=== PATIENT | male | born 1980 | race Caucasian/White ===

== ENCOUNTER 2016-02-21 20:14 | Emergency (ER) | payer OTHER ==
[2016-02-21] MEDS ORDERED: NS 0.9% 1000 ML* 1,000 ML IV ONE (20:21)
--- NOTE | 2016-02-21 20:40 | ED ---
Adam Crawley Karl, scribed for Alexey Gutierrez MD on 02/21/16 at 2017 . Substance Abuse/Use - HPI Summary HPI Summary: Pt is a 35 y/o male that was BIBA to the ED with c/o an OD. Per EMT, pt was found unresponsive by a passerby who called an ambulance. Pt was found w/ agonal respirations and received nasal narcan from EMT. Pt arrived to the ED alert and oriented x4 and reported intravenous use of heroin and cocaine at 19: 00 tonight. Pt received Nasal Narcan 4mg and Lopressor 5mg IV METALIZER. Hx: substance abuse disorder. - History Of Current Complaint Stated Complaint: OVERDOSE Hx Obtained From: Patient, EMS Ingestion History: Type/Name Of Drug - heroin, cocaine Overdose Characteristics: IV Timing Of Abuse: Binge Use Severity Initially: Moderate Severity Currently: Moderate Associated Signs And Symptoms: Other: - labored respirations - Allergies/Home Medications Allergies/Adverse Reactions: Allergies Allergy/AdvReac Type Severity Reaction Status Date / Time No Known Allergies Allergy Verified 05/05/15 10:32 PMH/Surg Hx/FS Hx/Imm Hx Endocrine/Hematology History: Denies: Hx Diabetes, Hx Thyroid Disease Cardiovascular History: Denies: Hx Hypertension, Hx Pacemaker/ICD Respiratory History: Denies: Hx Asthma, Hx Chronic Obstructive Pulmonary Disease (COPD) GI History: Denies: Hx Ulcer Musculoskeletal History: Reports: Hx Tendonitis - Per Pt Sensory History: Denies: Hx Hearing Aid Psychiatric History: Reports: Hx Anxiety, Hx Attention Deficit Hyperactivity Disorder Denies: Hx Panic Disorder - Surgical History Surgery Procedure, Year, and Place: TUBES IN EARS CHILD - Immunization History Date of Tetanus Vaccine: 2010 Date of Influenza Vaccine: Fall 2014 Infectious Disease History: Denies: Hx Clostridium Difficile, Hx Hepatitis, Hx Human Immunodeficiency Virus (HIV), Hx of Known/Suspected MRSA, Hx Shingles, Hx Tuberculosis, Hx Known/ Suspected VRE, Hx Known/Suspected VRSA, History Other Infectious Disease - Family History Known Family History: Negative: Other - malignant hyperthermia - Social History Alcohol Use: Occasionally Hx Substance Use: Yes Substance Use Type: Reports: None Substance Use Comment - Amount & Last Used: No use for >5 years Hx Tobacco Use: Yes Smoking Status (MU): Current Some Day Smoker Type: Cigarettes, Smokeless Tobacco Amount Used/How Often: 4-5 CIG/DAY AND USES SMOKELESS TOBACCO Length of Time of Smoking/Using Tobacco: 20+ YEARS Have You Smoked in the Last Year: Yes Review of Systems Constitutional: Negative Eyes: Negative ENT: Negative Cardiovascular: Other - tachycardia at 160 bpm Respiratory: Other - agonal respirations Gastrointestinal: Negative Genitourinary: Negative Musculoskeletal: Negative Skin: Negative Neurological: Other - "found unresponsive" Psychological: Other - OD on heroin and cocaine All Other Systems Reviewed And Are Negative: Yes Physical Exam Triage Information Reviewed: Yes Vital Signs On Initial Exam: Initial Vitals Temp Pulse Resp BP Pulse Ox 98.1 F 160 16 120/87 98 02/21/16 20:17 02/21/16 20:17 02/21/16 20:17 02/21/16 20:17 02/21/16 20:17 Vital Signs Reviewed: Yes Appearance: Positive: No Pain Distress, Thin Skin: Positive: Warm Head/Face: Positive: Normal Head/Face Inspection Eyes: Positive: KERLINE ENT: Positive: Hearing grossly normal Neck: Positive: Supple Respiratory/Lung Sounds: Positive: Breath Sounds Present Cardiovascular: Positive: Tachycardia. Negative: Murmur Abdomen Description: Positive: Nontender, Soft Bowel Sounds: Positive: Present Musculoskeletal: Positive: Strength/ROM Intact Neurological: Positive: Sensory/Motor Intact, Alert, Oriented to Person Place, Time Psychiatric: Positive: Affect/Mood Appropriate Diagnostics - Vital Signs Vital Signs Temp Pulse Resp BP Pulse Ox 02/21/16 20:17 98.1 F 160 16 120/87 98 - Laboratory Result Diagrams: 02/21/16 20:50 02/21/16 20:50 Lab Statement: Any lab studies that have been ordered have been reviewed, and results considered in the medical decision making process. - EKG 21:21 EKG Interpretation: A-fib with RVR at 160 bpm Re-Evaluation - Re-Evaluation First Eval Change: Improved - pt improved, heart rate normal Course/Dx - Diagnoses Provider Diagnoses: Polydrug abuse, Polysubstance overdose - Critical Care Time Critical Care Time: 30-74 min Discharge - Discharge Plan Condition: Improved Disposition: HOME Patient Education Materials: Polysubstance Abuse (ED), Opioid Overdose (ED) Referrals: Johnie Shaffer MD [Primary Care Provider] - Additional Instructions: Please follow up with your primary care provider. Return to the emergency department for changing or worsening symptoms. The documentation as recorded by the scribe, Medina,Ricardo accurately reflects the service I personally performed and the decisions made by me, Alexey Gutierrez MD.
[2016-02-21 20:58] LABS: Hematocrit 47 % (42-52); Hemoglobin 15.3 g/dl (14.0-18.0); Mean Corpuscular HGB Conc 33 g/dl (31-36); Mean Corpuscular Hemoglobin 32 pg (27-31); Mean Corpuscular Volume 98 fL (80-94); Mean Platelet Volume 8 um3 (7.4-10.4); Red Blood Count 4.77 10^6/ul (4.0-5.4); Red Cell Distribution Width 13 % (10.5-15); White Blood Count 10.4 10^3/ul (3.5-10.8)
[2016-02-21 21:15] LABS: ALT 13 U/L (7-52); AST 17 U/L (13-39); Albumin 4.1 g/dL (3.2-5.2); Alkaline Phosphatase 96 U/L (34-104); Anion Gap 8 mmol/L (2-11); BUN/Creatinine Ratio 13.5 (8-20); Blood Urea Nitrogen 14 mg/dL (6-24); CO2 Carbon Dioxide 23 mmol/L (22-32); Calcium 8.6 mg/dL (8.6-10.3); Chloride 107 mmol/L (101-111); Creatine Kinase 60 U/L (10-223); EGFR African American 103.3 (>60); EGFR Non-African American 80.4 (>60); Globulin 2.7 g/dL (2-4); Glucose 145 mg/dL (70-100); Potassium 3.6 mmol/L (3.5-5.0); Sodium 138 mmol/L (133-145); Total Protein 6.8 g/dL (6.4-8.9)
[2016-02-21] MEDS ORDERED: Metoprolol Tartrate IV* 1 MG/ML 5 ML VIAL IV ONE ×2 (21:24→21:56)
[2016-02-21] MEDS ORDERED: Metoprolol Tartrate IV* 1 MG/ML 5 ML VIAL ONE (21:26)
[2016-02-21] MEDS: NS 0.9% 1000 ML* 1,000 ML IV ONE ×2 (21:35→22:33)
[2016-02-21 21:43] LABS: Acetaminophen < 15 mcg/mL; Alcohol 76 mg/dL (<10); Salicylate < 2.50 mg/dL (<30)
[2016-02-21 21:57] LABS: Troponin I 0.01 ng/mL (<0.04)
[2016-02-21] MEDS ORDERED: Diltiazem IV* 5 MG/ML 5 ML VIAL (for loading dose/IV Push) (25 MG) IV SLOW PU ONE (22:27)
[2016-02-22 01:23] VITALS: BP 111/77
== END 2016-02-22 01:22 | disposition home or self-care (01) ==
LOC: ED 20:14
DX: T40.1X1A Poisoning by heroin, accidental (unintentional), initial encounter (principal); T40.5X1A Poisoning by cocaine, accidental (unintentional), initial encounter; F14.10 Cocaine abuse, uncomplicated; Y92.9 Unspecified place or not applicable
CPT/HCPCS: 36415; 80053; 80320; 80329; 82550; 83605; 84484; 85025; 93005; 96361; 96374; 99283; G0480; J3490

== ENCOUNTER 2016-03-22 22:25 | Emergency (ER) | payer OTHER ==
[2016-03-22 22:40] VITALS: BP 149/88
--- NOTE | 2016-03-22 23:15 | ED ---
Lower Extremity - HPI Summary HPI Summary: 35 m presents with right ankle pain and swelling for 3 days. He states that pain started in his nunes and has since spread into his ankle. He admits to warmth and redness of area. He denies any trauma. He denies any IV drug use. He denies any history of gout or STDs. He has a history of lyme disease. He denies any abrasion or scratch to area. He says that standing for long periods of time makes it worst. - History of Current Complaint Chief Complaint: EDExtremityLower Stated Complaint: RIGHT ANKLE PAIN/SWELLING Time Seen by Provider: 03/22/16 22:59 Pain Intensity: 7 - Allergies/Home Medications Allergies/Adverse Reactions: Allergies Allergy/AdvReac Type Severity Reaction Status Date / Time No Known Allergies Allergy Verified 03/22/16 22:36 PMH/Surg Hx/FS Hx/Imm Hx Endocrine/Hematology History: Denies: Hx Diabetes, Hx Thyroid Disease Cardiovascular History: Denies: Hx Hypertension, Hx Pacemaker/ICD Respiratory History: Denies: Hx Asthma, Hx Chronic Obstructive Pulmonary Disease (COPD) GI History: Denies: Hx Ulcer Musculoskeletal History: Reports: Hx Tendonitis - Per Pt Sensory History: Denies: Hx Hearing Aid Psychiatric History: Reports: Hx Anxiety, Hx Attention Deficit Hyperactivity Disorder Denies: Hx Panic Disorder - Surgical History Surgery Procedure, Year, and Place: TUBES IN EARS CHILD - Immunization History Date of Tetanus Vaccine: 2010 Date of Influenza Vaccine: Fall 2014 Infectious Disease History: No Infectious Disease History: Denies: Hx Clostridium Difficile, Hx Hepatitis, Hx Human Immunodeficiency Virus (HIV), Hx of Known/Suspected MRSA, Hx Shingles, Hx Tuberculosis, Hx Known/ Suspected VRE, Hx Known/Suspected VRSA, History Other Infectious Disease, Traveled Outside the [place] in Last 30 Days - Family History Known Family History: Negative: Other - malignant hyperthermia - Social History Alcohol Use: Occasionally Hx Substance Use: Yes Substance Use Type: Reports: None Substance Use Comment - Amount & Last Used: No use for >5 years Hx Tobacco Use: Yes Smoking Status (MU): Current Some Day Smoker Type: Cigarettes, Smokeless Tobacco Amount Used/How Often: 4-5 CIG/DAY AND USES SMOKELESS TOBACCO Length of Time of Smoking/Using Tobacco: 20+ YEARS Have You Smoked in the Last Year: Yes Review of Systems Negative: Fever Negative: Chest Pain Negative: Shortness Of Breath Positive: Myalgia - right ankle pain and swelling All Other Systems Reviewed And Are Negative: Yes Physical Exam Triage Information Reviewed: Yes Vital Signs On Initial Exam: Initial Vitals Temp Pulse Resp BP Pulse Ox 98.5 F 109 18 149/88 100 03/22/16 22:36 03/22/16 22:36 03/22/16 22:36 03/22/16 22:36 03/22/16 22:36 Vital Signs Reviewed: Yes Appearance: Positive: Well-Appearing Skin: Positive: Other - erythema and edema present of right nunes and ankle Head/Face: Positive: Normal Head/Face Inspection Eyes: Positive: Normal, Conjunctiva Clear Respiratory/Lung Sounds: Positive: Clear to Auscultation, Breath Sounds Present Cardiovascular: Positive: Normal, RRR Musculoskeletal: Positive: Strength/ROM Intact - right ankle with pain, no area of flatulence noted Diagnostics - Vital Signs Vital Signs Temp Pulse Resp BP Pulse Ox 03/22/16 22:36 98.5 F 109 18 149/88 100 - Laboratory Result Diagrams: 03/22/16 23:41 03/22/16 23:41 Lab Statement: Any lab studies that have been ordered have been reviewed, and results considered in the medical decision making process. - Radiology ankle Xray Interpretation: No Acute Changes - do not see fracture or evidence of a large amount of edema present Radiology Interpretation Completed By: ED Physician Lower Extremity Course/Dx - Course Course Of Treatment: 35 M presents with swelling and redness that started on nunes and moved to ankle, swelling has gotten worst with standing, has full ROM of ankle with pain, no calf tenderness, erythema and warmth to ankle and nunes, labs ESR normal unlike when was admitted for septic arthritis, WBC normal, do not suspect gonorrhea or lyme disease as cause as ESR normal, will treat as cellulitis and have follow up with primary, patient agrees with plan - Diagnoses Differential Diagnosis/HQI/PQRI: Positive: Cellulitis, DVT, Gout, Septic Arthritis, Other - gonorrhea, lyme arthritis Provider Diagnoses: Cellulitis of right ankle Discharge - Discharge Plan Condition: Good Disposition: HOME Prescriptions: Cephalexin CAP* [Keflex CAP*] 500 mg PO QID #39 cap Patient Education Materials: Cellulitis (ED) Referrals: Johnie Shaffer MD [Primary Care Provider] - Additional Instructions: Take Keflex 4 times a day for 10 days Take Tylenol or ibuprofen for pain every 6 hours Keep elevated and apply ice for swelling Follow up with primary within 3 days Return to ED if develop fever, area of redness spreads, numbness or any new or worsening symptoms
[2016-03-22] MEDS ORDERED: oxyCODONE/Acetamin 5/325 MG* TAB PO ONE (23:48)
[2016-03-22 23:55] LABS: Hematocrit 43 % (42-52); Hemoglobin 14.3 g/dl (14.0-18.0); Mean Corpuscular HGB Conc 34 g/dl (31-36); Mean Corpuscular Hemoglobin 32 pg (27-31); Mean Corpuscular Volume 95 fL (80-94); Mean Platelet Volume 9 um3 (7.4-10.4); Red Blood Count 4.49 10^6/ul (4.0-5.4); Red Cell Distribution Width 13 % (10.5-15); White Blood Count 8.1 10^3/ul (3.5-10.8)
[2016-03-23 00:04] LABS: Albumin 4.1 g/dL (3.2-5.2); BUN/Creatinine Ratio 18.3 (8-20); Calcium 9.1 mg/dL (8.6-10.3); EGFR African American 117.6 (>60); EGFR Non-African American 91.4 (>60); Total Bilirubin 0.3 mg/dL (0.2-1.0); Total Protein 7.1 g/dL (6.4-8.9)
[2016-03-23 00:40] LABS: Potassium 4.2 mmol/L (3.5-5.0)
[2016-03-23 00:57] LABS: Erythrocyte Sed Rate 14 mm/Hr (0-14)
[2016-03-23] MEDS ORDERED: Cephalexin CAP* 500 MG PO ONE (01:25)
--- NOTE | 2016-03-23 09:47 | RAD ---
INDICATION: Pain and swelling in the right anterior lower leg. COMPARISON: None. TECHNIQUE: 3 views of the right ankle were obtained. FINDINGS: Mild swelling is observed at the level of the ankle. The bones are normal alignment. Joint spaces appear maintained. No fracture is seen. IMPRESSION: MILD SOFT TISSUE SWELLING OVERLYING THE ANKLE WITHOUT UNDERLYING BONY ABNORMALITY. If the patient's symptoms persist, follow-up imaging is recommended.
== END 2016-03-23 01:40 | disposition home or self-care (01) ==
LOC: ED 22:25
DX: L03.115 Cellulitis of right lower limb (principal); M25.571 Pain in right ankle and joints of right foot; Z72.0 Tobacco use
CPT/HCPCS: 36415; 80053; 85025; 85652; 86141; 99282; A9270-GY

== ENCOUNTER 2016-06-24 02:59 | Emergency (ER) | payer OTHER ==
[2016-06-24 03:21] VITALS: BP 167/87
[2016-06-24 04:03] LABS: Hematocrit 41 % (42-52); Hemoglobin 13.5 g/dl (14.0-18.0); Mean Corpuscular HGB Conc 33 g/dl (31-36); Mean Corpuscular Hemoglobin 32 pg (27-31); Mean Corpuscular Volume 95 fL (80-94); Mean Platelet Volume 9 um3 (7.4-10.4); Red Blood Count 4.27 10^6/ul (4.0-5.4); Red Cell Distribution Width 13 % (10.5-15); White Blood Count 14.8 10^3/ul (3.5-10.8)
[2016-06-24 04:12] LABS: BUN/Creatinine Ratio 19.4 (8-20); Calcium 9.2 mg/dL (8.6-10.3); EGFR African American 98.9 (>60); EGFR Non-African American 76.9 (>60); Potassium 3.7 mmol/L (3.5-5.0)
[2016-06-24] MEDS ORDERED: DOXYcycline CAP(*) 100 MG PO ONE (05:19)
--- NOTE | 2016-07-07 05:24 | ED ---
Martin Crawley Salem, scribed for Alexey Gutierrez MD on 06/24/16 at 0416 . Skin Complaint - HPI Summary HPI Summary: Patient is a 35 y/o male who presents to the ED with pain and edema of the left side of his chin since last night. He reports no other symptoms. Pt denies any known drug allergies. - History of Current Complaint Chief Complaint: EDRashSkinAbscess Time Seen by Provider: 06/24/16 03:17 Stated Complaint: SWOLLEN LEFT BOTTOM JAW Hx Obtained From: Patient Onset/Duration: Started Days Ago, Atraumatic, Still Present Timing: Constant Onset Severity: Moderate Current Severity: Moderate Pain Intensity: 5 Pain Scale Used: 0-10 Numeric Skin Location: Face - Left side of chin. Character: Swelling, Pain Aggravating Symptom(s): Nothing Alleviating Symptom(s): Nothing Associated Signs & Symptoms: Negative - Additional Pertinent History Primary Care Physician: MILLA - Allergy/Home Medications Allergies/Adverse Reactions: Allergies Allergy/AdvReac Type Severity Reaction Status Date / Time No Known Allergies Allergy Verified 06/24/16 21:20 PMH/Surg Hx/FS Hx/Imm Hx Endocrine/Hematology History: Denies: Hx Diabetes, Hx Thyroid Disease Cardiovascular History: Denies: Hx Hypertension, Hx Pacemaker/ICD Respiratory History: Denies: Hx Asthma, Hx Chronic Obstructive Pulmonary Disease (COPD) GI History: Denies: Hx Ulcer Musculoskeletal History: Reports: Hx Tendonitis - Per Pt Sensory History: Denies: Hx Hearing Aid Psychiatric History: Reports: Hx Anxiety, Hx Attention Deficit Hyperactivity Disorder Denies: Hx Panic Disorder - Surgical History Surgery Procedure, Year, and Place: TUBES IN EARS CHILD - Immunization History Date of Tetanus Vaccine: 2010 Date of Influenza Vaccine: Fall 2014 Infectious Disease History: No Infectious Disease History: Denies: Hx Clostridium Difficile, Hx Hepatitis, Hx Human Immunodeficiency Virus (HIV), Hx of Known/Suspected MRSA, Hx Shingles, Hx Tuberculosis, Hx Known/ Suspected VRE, Hx Known/Suspected VRSA, History Other Infectious Disease, Traveled Outside the [place] in Last 30 Days - Family History Known Family History: Negative: Other - malignant hyperthermia - Social History Alcohol Use: Occasionally Hx Substance Use: Yes Substance Use Type: Reports: None Substance Use Comment - Amount & Last Used: No use for >5 years Hx Tobacco Use: Yes Smoking Status (MU): Current Some Day Smoker Type: Cigarettes, Smokeless Tobacco Amount Used/How Often: 4-5 CIG/DAY AND USES SMOKELESS TOBACCO Length of Time of Smoking/Using Tobacco: 20+ YEARS Have You Smoked in the Last Year: Yes Review of Systems Negative: Fever Positive: Other - Edema and pain of left side of chin. All Other Systems Reviewed And Are Negative: Yes Physical Exam Triage Information Reviewed: Yes Vital Signs On Initial Exam: Initial Vitals Temp Pulse Resp BP Pulse Ox 98 F 103 18 161/87 100 06/24/16 03:03 06/24/16 03:03 06/24/16 03:03 06/24/16 03:03 06/24/16 03:03 Vital Signs Reviewed: Yes Appearance: Positive: Well-Appearing, No Pain Distress Skin: Positive: Other - area of folliculitis to chin Eyes: Positive: KERLINE ENT: Positive: Hearing grossly normal Respiratory/Lung Sounds: Positive: Breath Sounds Present Neurological: Positive: Alert, Oriented to Person Place, Time - Saige Coma Scale Coma Scale Total: 15 Diagnostics - Vital Signs Vital Signs Temp Pulse Resp BP Pulse Ox 06/24/16 03:16 98.0 F 103 18 167/87 100 06/24/16 03:03 98 F 103 18 161/87 100 - Laboratory Lab Results: Lab Results 06/24/16 Range/Units 03:50 WBC 14.8 H (3.5-10.8) 10^3/ul RBC 4.27 (4.0-5.4) 10^6/ul Hgb 13.5 L (14.0-18.0) g/dl Hct 41 L (42-52) % MCV 95 H (80-94) fL MCH 32 H (27-31) pg MCHC 33 (31-36) g/dl RDW 13 (10.5-15) % Plt Count 250 (150-450) 10^3/ul MPV 9 (7.4-10.4) um3 Neut % (Auto) 79.1 (38-83) % Lymph % (Auto) 12.4 L (25-47) % [place] % (Auto) 7.0 (1-9) % Eos % (Auto) 1.1 (0-6) % Baso % (Auto) 0.4 (0-2) % Absolute Neuts (auto) 11.7 H (1.5-7.7) 10^3/ul Absolute Lymphs (auto) 1.8 (1.0-4.8) 10^3/ul Absolute Monos (auto) 1.0 H (0-0.8) 10^3/ul Absolute Eos (auto) 0.2 (0-0.6) 10^3/ul Absolute Basos (auto) 0.1 (0-0.2) 10^3/ul Absolute Nucleated RBC 0 10^3/ul Nucleated RBC % 0 Result Diagrams: 06/24/16 03:50 06/24/16 03:50 Lab Statement: Any lab studies that have been ordered have been reviewed, and results considered in the medical decision making process. Course/Dx - Diagnoses Provider Diagnoses: Folliculitis Discharge - Discharge Plan Condition: Stable Disposition: HOME Patient Education Materials: Folliculitis (ED) Referrals: Johnie Shaffer MD [Primary Care Provider] - Additional Instructions: Follow up with PCP. The documentation as recorded by the Martin faria Salem accurately reflects the service I personally performed and the decisions made by Matt diaz David, MD.
== END 2016-06-24 05:25 | disposition home or self-care (01) ==
LOC: ED 02:59
DX: L73.9 Follicular disorder, unspecified (principal)
CPT/HCPCS: 36415; 80048; 85025; 99282; A9270-GY

== ENCOUNTER 2016-06-24 20:58 | Emergency (ER) | payer OTHER ==
[2016-06-24 21:20] VITALS: BP 128/77
--- NOTE | 2016-06-24 21:30 | UC ---
Skin Complaint HPI - HPI Summary HPI Summary: seen in ED last night got first dose of antibiotic for folliculitis left side of face---the ED did not send rx to pharmacy he called several times and they said they were to busy---here tonight for a dose of antibiotic and an RX - History of Current Complaint Chief Complaint: UCSkin Time Seen by Provider: 06/24/16 21:15 Stated Complaint: FACIAL SWELLING Hx Obtained From: Patient Onset/Duration: Sudden Onset, Lasting Days - 1, Still Present Timing: Constant Onset Severity: Moderate Current Severity: Moderate Pain Intensity: 5 Pain Scale Used: 0-10 Numeric Location: Discrete - left side of chin/cheek Character: Redness, Raised, Painful Aggravating: Touch Alleviating: Nothing Associated Signs & Symptoms: Positive: Negative - Allergy/Home Medications Allergies/Adverse Reactions: Allergies Allergy/AdvReac Type Severity Reaction Status Date / Time No Known Allergies Allergy Verified 06/24/16 21:20 Review of Systems Constitutional: Negative Skin: Other - Folliculitis/cyst developing left side of chin / cheek Eyes: Negative ENT: Negative Respiratory: Negative Cardiovascular: Negative Gastrointestinal: Negative Genitourinary: Negative Motor: Negative Neurovascular: Negative Musculoskeletal: Negative Neurological: Negative Psychological: Negative All Other Systems Reviewed And Are Negative: Yes PMH/Surg Hx/FS Hx/Imm Hx Previously Healthy: No Endocrine History Of: Denies: Diabetes, Thyroid Disease Cardiovascular History Of: Denies: Cardiac Disorders, Hypertension, Pacemaker/ICD Respiratory History Of: Denies: COPD, Asthma GI/ History Of: Denies: Ulcer Psychological History Of: Reports: Anxiety - Surgical History Surgical History: Yes Surgery Procedure, Year, and Place: TUBES IN EARS CHILD - Family History Known Family History: Negative: Other - malignant hyperthermia - Social History Occupation: Employed Full-time Lives: With Family Alcohol Use: Weekly Substance Use Type: Cocaine, Heroin, Synthetic Drugs Substance Use Comment - Amount & Last Used: Last Used Heroin a couple days ago Smoking Status (MU): Current Some Day Smoker Type: Cigarettes, Smokeless Tobacco Amount Used/How Often: 4-5 CIG/DAY AND USES SMOKELESS TOBACCO Length of Time of Smoking/Using Tobacco: 20+ YEARS Have You Smoked in the Last Year: Yes - Immunization History Most Recent Influenza Vaccination: 2014 Most Recent Tetanus Shot: 2011 Most Recent Pneumonia Vaccination: never Physical Exam Triage Information Reviewed: Yes Appearance: Ill-Appearing, Pain Distress, Thin Vital Signs: Initial Vital Signs Temp 99.3 F 06/24/16 21:17 Pulse 102 06/24/16 21:17 Resp 16 06/24/16 21:17 BP 128/77 06/24/16 21:17 Pulse Ox 99 06/24/16 21:17 Vital Signs Reviewed: Yes Eye Exam: Normal Eyes: Positive: Conjunctiva Clear ENT Exam: Normal ENT: Positive: Normal ENT inspection, Hearing grossly normal. Negative: Nasal congestion, Nasal drainage, Trismus, Muffled/hoarse voice Dental Exam: Normal Neck exam: Normal Neck: Positive: Supple, Nontender, No Lymphadenopathy Respiratory Exam: Normal Respiratory: Positive: Chest non-tender, Lungs clear, Normal breath sounds, No respiratory distress, No accessory muscle use Cardiovascular Exam: Normal Cardiovascular: Positive: RRR, No Murmur, Pulses Normal, Brisk Capillary Refill Musculoskeletal Exam: Normal Musculoskeletal: Positive: Strength Intact, ROM Intact, Edema @ - face as described Neurological Exam: Normal Psychological Exam: Normal Skin Exam: Other Skin: Positive: Other - folliculitis developing cyst left side of face near chin --firm with no center fluctulance Course/Dx - Course Course Of Treatment: next dose of doxy given, continue doxy frequent hot compresses follow with pcp re-check with pcp - Differential Diagnoses - Skin Complaint Differential Diagnoses: Abscess, Cellulitis, Impetigo - Diagnoses Provider Diagnoses: folliculitis left cheek/chin Discharge - Discharge Plan Condition: Stable Disposition: HOME Prescriptions: DOXYcycline CAP(*) [DOXYcycline 100MG CAP(*)] 100 mg PO BID #18 cap Patient Education Materials: Folliculitis (ED), Heat Pack Application (ED), Cyst (ED) Referrals: Johnie Shaffer MD [Primary Care Provider] - 1 Week
[2016-06-24] MEDS ORDERED: DOXYcycline CAP(*) 100 MG PO ONE (21:35)
== END 2016-06-24 21:45 | disposition home or self-care (01) ==
LOC: UCEAST 20:58
DX: L73.9 Follicular disorder, unspecified (principal); F41.9 Anxiety disorder, unspecified; Z72.0 Tobacco use
CPT/HCPCS: 99212; A9270-GY; G0463

== ENCOUNTER 2017-04-24 22:29 | Emergency (ER) | payer SELFPAY ==
[2017-04-25 02:43] VITALS: BP 106/61
--- NOTE | 2017-04-25 15:22 | ED ---
Isak Crawley Sixian, scribed for Kash Arzate MD on 04/24/17 at 2336 . Substance Abuse/Use - HPI Summary HPI Summary: This patient is a 36 year old M BIBA to ED with a opiate overdose today. The pt had a relapse today and overdosed on heroin. Pt was found by bystanders with decrease responsiveness. On EMS arrival, pt was arousable without Narcan. Pt now awake and alert. Pt following commands. Pt denies SI or other use of drugs of abuse. - History Of Current Complaint Chief Complaint: EDOverdose Stated Complaint: OVERDOSE Time Seen by Provider: 04/24/17 23:09 Hx Obtained From: Patient Ingestion History: Type/Name Of Drug - Heroin Aggravating Factor(s): Nothing Alleviating Factor(s): Nothing Associated Signs And Symptoms: Other: - Patient reports drowsiness. - Allergies/Home Medications Allergies/Adverse Reactions: Allergies Allergy/AdvReac Type Severity Reaction Status Date / Time No Known Allergies Allergy Verified 06/24/16 21:20 PMH/Surg Hx/FS Hx/Imm Hx Endocrine/Hematology History: Denies: Hx Diabetes, Hx Thyroid Disease Cardiovascular History: Denies: Hx Hypertension, Hx Pacemaker/ICD Respiratory History: Denies: Hx Asthma, Hx Chronic Obstructive Pulmonary Disease (COPD) GI History: Denies: Hx Ulcer Musculoskeletal History: Reports: Hx Tendonitis - Per Pt Sensory History: Denies: Hx Hearing Aid Psychiatric History: Reports: Hx Anxiety, Hx Attention Deficit Hyperactivity Disorder Denies: Hx Panic Disorder - Surgical History Surgery Procedure, Year, and Place: TUBES IN EARS CHILD - Immunization History Date of Tetanus Vaccine: 2010 Date of Influenza Vaccine: Fall 2014 Infectious Disease History: No Infectious Disease History: Denies: Hx Clostridium Difficile, Hx Hepatitis, Hx Human Immunodeficiency Virus (HIV), Hx of Known/Suspected MRSA, Hx Shingles, Hx Tuberculosis, Hx Known/ Suspected VRE, Hx Known/Suspected VRSA, History Other Infectious Disease, Traveled Outside the [place] in Last 30 Days - Family History Known Family History: Negative: Other - malignant hyperthermia - Social History Alcohol Use: Weekly Hx Substance Use: Yes Substance Use Type: Reports: Cocaine, Heroin, Synthetic Drugs Substance Use Comment - Amount & Last Used: Last Used Heroin a couple days ago Hx Tobacco Use: Yes Smoking Status (MU): Current Some Day Smoker Type: Cigarettes, Smokeless Tobacco Amount Used/How Often: 4-5 CIG/DAY AND USES SMOKELESS TOBACCO Length of Time of Smoking/Using Tobacco: 20+ YEARS Have You Smoked in the Last Year: Yes Review of Systems Negative: Fever Neurological: Other - Patient reports drowsiness. All Other Systems Reviewed And Are Negative: Yes Physical Exam - Summary Physical Exam Summary: Appearance: Well-appearing, no distress, drowsy Skin: Warm, color reflects adequate perfusion Head: Normal Head/Face inspection Eyes: Conjunctiva clear ENT: Normal inspection Neck: Supple, Respiratory: Lungs clear, Normal breath sounds, no respiratory distress Cardio: RRR, No murmur, pulses normal, brisk capillary refill Abdomen: soft, nontender, no guarding, no rebound Bowel sounds: present Musculoskeletal: Strength Intact/ ROM intact. No calf tenderness. No edema. Neuro: Alert, muscle tone normal, facial symmetry, speech normal, sensory/motor intact Psychological: Normal Triage Information Reviewed: Yes Vital Signs On Initial Exam: Initial Vitals Temp Pulse Resp BP Pulse Ox 99.8 F 119 10 146/82 94 04/24/17 22:32 04/24/17 22:32 04/24/17 22:32 04/24/17 22:32 04/24/17 22:32 Vital Signs Reviewed: Yes Diagnostics - Vital Signs Vital Signs Temp Pulse Resp BP Pulse Ox 04/24/17 23:00 100 9 121/61 97 04/24/17 22:36 122 91 04/24/17 22:34 146/82 04/24/17 22:32 99.8 F 119 10 146/82 94 - Laboratory Lab Statement: Any lab studies that have been ordered have been reviewed, and results considered in the medical decision making process. - EKG 2239 Cardiac Rate: NL EKG Rhythm: Sinus Bradycardia - 110 BPM EKG Interpretation: Normal intervals, axis. No ST/T wave changes. Re-Evaluation - Re-Evaluation First Eval Change: Improved - Pt resting comfortably in bed. pt with no hypoxia or bradypnea. Will continue to monitor. Second Eval Re-Evaluation Time: 01:30 Change: Improved - pt continues to be asymptomatic without respiratory distress or hypoxia. Third Eval Re-Evaluation Time: 02:07 Change: Improved - Pt monitored in the ED without respiratory insufficiency x 4 hours. Course/Dx - Diagnoses Differential Diagnosis/HQI/PQRI: Positive: Alcohol Abuse, Anxiety, Drug Abuse, Drug Withdrawal Provider Diagnoses: Heroin abuse Discharge - Discharge Plan Condition: Improved Disposition: HOME Patient Education Materials: Opioid Overdose (ED) Referrals: Johnie Shaffer MD [Primary Care Provider] - Additional Instructions: RETURN TO THE EMERGENCY DEPARTMENT FOR CHANGING OR WORSENING SYMPTOMS. The documentation as recorded by the Isak faria Sixian accurately reflects the service I personally performed and the decisions made by , Kash Arzate MD.
== END 2017-04-25 02:51 | disposition home or self-care (01) ==
LOC: ED 22:29
DX: F11.10 Opioid abuse, uncomplicated (principal); F41.9 Anxiety disorder, unspecified; F90.9 Attention-deficit hyperactivity disorder, unspecified type; F17.210 Nicotine dependence, cigarettes, uncomplicated
CPT/HCPCS: 93005; 99283

== ENCOUNTER 2017-04-25 03:03 | Emergency (ER) | payer SELFPAY ==
[2017-04-25] MEDS ORDERED: Naloxone* 0.4 MG/ML 1 ML VIAL ONE (03:12)
[2017-04-25] MEDS ORDERED: Naloxone* 0.4 MG/ML 1 ML VIAL IV PUSH ONE ×2 (03:44→05:32)
[2017-04-25 08:08] VITALS: BP 116/68
--- NOTE | 2017-04-25 14:19 | ED ---
Isak Crawley Sixian, scribed for Kash Arzate MD on 04/25/17 at 0355 . Substance Abuse/Use - HPI Summary HPI Summary: This patient is a 36 year old M BIBA to ED with a chief complaint of substance overdose since 2199 today. The pt relapsed earlier today and overdosed on heroin. Pt was discharged after several hours of monitoring, and was found with decreased responsiveness in the the ED lobby. Pt given IV Narcan with improvement in symptoms. Pt states after discharge he went into the bathroom and injected heroin while waiting on a cab. Pt - History Of Current Complaint Chief Complaint: EDOverdose Stated Complaint: OVERDOSE Time Seen by Provider: 04/25/17 03:44 Hx Obtained From: Patient Aggravating Factor(s): Nothing Alleviating Factor(s): Nothing Associated Signs And Symptoms: Other: - . Patient reports drowsiness and is pale. - Allergies/Home Medications Allergies/Adverse Reactions: Allergies Allergy/AdvReac Type Severity Reaction Status Date / Time No Known Allergies Allergy Verified 06/24/16 21:20 PMH/Surg Hx/FS Hx/Imm Hx Endocrine/Hematology History: Denies: Hx Diabetes, Hx Thyroid Disease Cardiovascular History: Denies: Hx Hypertension, Hx Pacemaker/ICD Respiratory History: Denies: Hx Asthma, Hx Chronic Obstructive Pulmonary Disease (COPD) GI History: Denies: Hx Ulcer Musculoskeletal History: Reports: Hx Tendonitis - Per Pt Sensory History: Denies: Hx Hearing Aid Psychiatric History: Reports: Hx Anxiety, Hx Attention Deficit Hyperactivity Disorder Denies: Hx Panic Disorder - Surgical History Surgery Procedure, Year, and Place: TUBES IN EARS CHILD - Immunization History Date of Tetanus Vaccine: 2010 Date of Influenza Vaccine: Fall 2014 Infectious Disease History: Denies: Hx Clostridium Difficile, Hx Hepatitis, Hx Human Immunodeficiency Virus (HIV), Hx of Known/Suspected MRSA, Hx Shingles, Hx Tuberculosis, Hx Known/ Suspected VRE, Hx Known/Suspected VRSA, History Other Infectious Disease, Traveled Outside the [place] in Last 30 Days - Family History Known Family History: Negative: Other - malignant hyperthermia - Social History Alcohol Use: Weekly Hx Substance Use: Yes Substance Use Type: Reports: Cocaine, Heroin, Synthetic Drugs Substance Use Comment - Amount & Last Used: heroin today Hx Tobacco Use: Yes Smoking Status (MU): Current Some Day Smoker Type: Cigarettes, Smokeless Tobacco Amount Used/How Often: 4-5 CIG/DAY AND USES SMOKELESS TOBACCO Length of Time of Smoking/Using Tobacco: 20+ YEARS Have You Smoked in the Last Year: Yes Review of Systems Skin: Other - pale skin Neurological: Other - drowsiness All Other Systems Reviewed And Are Negative: Yes Physical Exam - Summary Physical Exam Summary: Appearance: drowsy, Skin: pale, adequate perfusion Head: Normal Head/Face inspection Eyes: Conjunctiva clear ENT: Normal inspection Neck: Supple, no nodes, no JVD. Respiratory: Lungs clear, Normal breath sounds, no respiratory distress Cardio: RRR, No murmur, pulses normal, brisk capillary refill Abdomen: soft, no distension Bowel sounds: present Musculoskeletal: ROM grossly intact Neuro: Alert, following some commands Psychological: unable to examine Triage Information Reviewed: Yes Vital Signs On Initial Exam: Initial Vitals Pulse Resp BP Pulse Ox 99 10 130/83 100 04/25/17 03:29 18 03:29 18 03:29 18 03:29 Vital Signs Reviewed: Yes Diagnostics - Vital Signs Vital Signs Pulse Resp BP Pulse Ox 04/25/17 03:29 99 10 130/83 100 - Laboratory Lab Statement: Any lab studies that have been ordered have been reviewed, and results considered in the medical decision making process. - EKG 0314 Cardiac Rate: NL EKG Rhythm: Sinus Tachycardia - 116 BPM EKG Interpretation: Normal intervals, axis. No ST, T wave changes. Re-Evaluation - Re-Evaluation First Eval Re-Evaluation Time: 06:58 Change: Improved - pt given 2 doses of IV narcan with improvement in symptoms. pt with no hypoxia or bradypnea. Pt hemodynamically stable with no respiratory distress. Course/Dx - Course Course Of Treatment: Pt again monitored in the ED for greater than 4 hours. Pt with no respiratory supression. Pt again advised to stop opiate use and continue rehab. - Diagnoses Differential Diagnosis/HQI/PQRI: Positive: Alcohol Withdrawal, Anxiety, Drug Abuse, Other - Opiate overdose Provider Diagnoses: Opiate overdose Discharge - Discharge Plan Condition: Improved Disposition: HOME Patient Education Materials: Opioid Overdose (ED) Referrals: Johnie Shaffer MD [Primary Care Provider] - 2 Days Additional Instructions: RETURN TO THE EMERGENCY DEPARTMENT FOR CHANGING OR WORSENING SYMPTOMS. The documentation as recorded by the Isak faria Sixian accurately reflects the service I personally performed and the decisions made by me, Kash Arzate MD.
== END 2017-04-25 08:07 | disposition home or self-care (01) ==
LOC: ED 03:03
DX: T40.1X1A Poisoning by heroin, accidental (unintentional), initial encounter (principal); F17.210 Nicotine dependence, cigarettes, uncomplicated; F17.290 Nicotine dependence, other tobacco product, uncomplicated
CPT/HCPCS: 93005; 96374; 96376; 99284; J2310

== ENCOUNTER 2018-10-17 16:18 | Inpatient (IN) | payer OTHER ==
[2018-10-17] MEDS ORDERED: Octreotide Acetate* 50 MCG in NS 0.9% 50 ML* 50 ML IV ONE (16:22)
[2018-10-17] MEDS ORDERED: Pantoprazole IV* 40 MG IV ONE (16:22)
[2018-10-17] MEDS ORDERED: cefTRIAXone(*) 1 GM in NS 0.9% 50 ML* 50 ML IVPB ONE (16:22)
[2018-10-17] MEDS ORDERED: Pantoprazole* 80 mg IN NS 80 MG/250 ML BAG IV ONE (16:22)
[2018-10-17] MEDS ORDERED: NS 0.9% 1000 ML** 1,000 ML IV ONE ×2 (16:25→16:26)
[2018-10-17] MEDS ORDERED: Ondansetron INJ* 2 MG/ML VIAL IV ONE (16:32)
[2018-10-17] MEDS ORDERED: Ondansetron INJ* 2 MG/ML VIAL ONE (16:35)
--- NOTE | 2018-10-17 16:36 | ED ---
GI/ HPI - HPI Summary HPI Summary: This patient is a 37 year old M ESTEBAN via EMS to ED with a chief complaint of vomiting since two days ago. Patient has been vomiting for the past two days but first starting vomiting blood today. Yesterday, patient felt nauseous and had a LEE. Per EMS, patient had hematemesis of bright red blood with significant clotting in both the bathroom and living room this afternoon. He also had diarrhea x1 that was dark and tarry just prior to vomiting. Symptoms aggravated by nothing. Symptoms alleviated by nothing. Patient is a heroin user but has not used heroin in the last three days. Patient also drinks alcohol (4-5 beers/ day) but has no known liver cirrhosis. Patient takes Vexer, Adderall, and Klonopin, but did not take them today. He has never had hematemesis before. Patient reports chest pain, LEE, nausea. Patient denies abdominal pain. Per EMS: patients BP was in the 70s but had NSR in the 60s-70s and 98% O2 sat on 2L in the ambulance. They were unable to obtain peripheral pulses or get an IV. Patient arrives in ER at 1617. Dr. Bloom at bedside at 1617. Upon arrival, the patient has a BP of 67/50, skin is pale and diaphoretic. Patient is alert and oriented x3. - History of Current Complaint Stated Complaint: VOMITING BLOOD PER EMS Hx Obtained From: Patient, EMS Onset/Duration: Started Days Ago - 2 days, Worse Since - This afternoon ( hematemesis) Timing: Lasting Days - Since 2 days ago Severity: Severe Current Severity: Severe Location of Pain: Other - Chest, denies abdominal pain Associated Signs and Symptoms: Positive: Hematemesis, Nausea, Vomiting, Black Tarry Stool, Diarrhea, Chest Pain. Negative: Abdominal Pain Aggravating Factor(s): Nothing Alleviating Factor(s): Nothing - Additional Pertinent History Primary Care Physician: [id number] - Allergy/Home Medications Allergies/Adverse Reactions: Allergies Allergy/AdvReac Type Severity Reaction Status Date / Time No Known Allergies Allergy Verified 06/24/16 21:20 Home Medications: Home Medications NK [No Home Medications Reported] 10/17/18 [History Confirmed 10/17/18] PMH/Surg Hx/FS Hx/Imm Hx Endocrine/Hematology History: Denies: Hx Diabetes, Hx Thyroid Disease Cardiovascular History: Denies: Hx Hypertension, Hx Pacemaker/ICD Respiratory History: Denies: Hx Asthma, Hx Chronic Obstructive Pulmonary Disease (COPD) GI History: Denies: Hx Ulcer Musculoskeletal History: Reports: Hx Tendonitis - Per Pt Sensory History: Denies: Hx Hearing Aid Psychiatric History: Reports: Hx Anxiety, Hx Attention Deficit Hyperactivity Disorder Denies: Hx Panic Disorder - Surgical History Surgery Procedure, Year, and Place: TUBES IN EARS CHILD - Immunization History Date of Tetanus Vaccine: 2010 Date of Influenza Vaccine: Fall 2014 Infectious Disease History: Denies: Hx Clostridium Difficile, Hx Hepatitis, Hx Human Immunodeficiency Virus (HIV), Hx of Known/Suspected MRSA, Hx Shingles, Hx Tuberculosis, Hx Known/ Suspected VRE, Hx Known/Suspected VRSA, History Other Infectious Disease - Family History Known Family History: Negative: Other - malignant hyperthermia - Social History Alcohol Use: Weekly Alcohol Amount: 4-5 beers/day Hx Substance Use: Yes Substance Use Type: Reports: Cocaine, Heroin, Synthetic Drugs Substance Use Comment - Amount & Last Used: heroin today Hx Tobacco Use: Yes Smoking Status (MU): Current Some Day Smoker Type: Cigarettes, Smokeless Tobacco Amount Used/How Often: 4-5 CIG/DAY AND USES SMOKELESS TOBACCO Length of Time of Smoking/Using Tobacco: 20+ YEARS Have You Smoked in the Last Year: Yes Review of Systems Constitutional: Other - Pale Positive: Skin Diaphoresis Positive: Chest Pain Gastrointestinal: Other - Hematemesis Positive: Vomiting, Diarrhea - Dark/tarry, Nausea. Negative: Abdominal Pain Positive: Headache All Other Systems Reviewed And Are Negative: Yes Physical Exam - Summary Physical Exam Summary: GENERAL: Patient is a pale M who is lying comfortable in the stretcher. Patient is not in any acute respiratory distress. HEAD AND FACE: Normocephalic EYES: PERRLA, EOMI x 2. EARS: Hearing grossly intact. MOUTH: Oropharynx within normal limits. NECK: Supple, trachea is midline, no adenopathy, no JVD, no carotid bruit. CHEST: Symmetric, no tenderness at palpation LUNGS: Clear to auscultation bilaterally. No wheezing or crackles. CVS: Regular rate and rhythm, S1 and S2 present, no murmurs or gallops appreciated. ABDOMEN: Tenderness to palpation in the epigastric region. EXTREMITIES: Full ROM in all major joints, no edema, no cyanosis or clubbing. NEURO: Alert and oriented x 3. No acute neurological deficits. Speech is normal and follows commands. SKIN: Dry and warm Triage Information Reviewed: Yes Vital Signs On Initial Exam: Initial Vitals Temp Pulse Resp BP Pulse Ox 97.1 F 59 12 72/43 96 10/17/18 16:29 10/17/18 16:29 10/17/18 16:29 10/17/18 16:29 10/17/18 16:29 Vital Signs Reviewed: Yes Procedures - Procedure Summary Procedure Summary: Because patient is a hard stick I used bedside US to obtain blood samples. Patient does not want a central line. Blood draw successful. Diagnostics - Laboratory Result Diagrams: 10/17/18 17:27 10/17/18 16:30 Lab Statement: Any lab studies that have been ordered have been reviewed, and results considered in the medical decision making process. - Radiology CXR Radiology Interpretation Completed By: Radiologist Summary of Radiographic Findings: No radiographic evidence for acute cardiopulmonary abnormality on this portable chest x-ray. Dr. Bloom has reviewed this radiology report. - EKG 1622 Cardiac Rate: NL - 79 BPM EKG Rhythm: Sinus Rhythm Summary of EKG Findings: NSR at 79 BPM, intraventricular conduction delay. GIGU Course/Dx - Course Course Of Treatment: This patient is a 37 year old M BIBA via EMS to ED with a chief complaint of vomiting since two days ago and hematemesis since this afternoon. In the ED course, patient received fluids, octreotide acetate, Zofran , Protonix, and Rocephin. Because patient is a hard stick, US was used to obtain blood samples. Patient does not want a central line. Blood draw successful. Blood work revealed INR 1.16, WBC 17.1, RBC 2.22, Hgb 7.0, Hct 21, MCV 96, MCH 32, neuts 13.9, monos 1.4, lactic acid 3.2, troponin 0.05, BUN 39, BUN/creatinine ratio 48.8, glucose 117, calcium 7.3, total bili 0.10, total protein 4.4, albumin 2.7, globulin 1.7. EKG at 1622 revealed NSR at 79 BPM, intraventricular conduction delay. CXR revealed No radiographic evidence for acute cardiopulmonary abnormality on this portable chest x-ray. Patient is very anemic, so I will transfuse with PRBC. At 1744 discussed with LOLA Car, who saw the patient at bedside. He stated that because platelets are 209, doesn t look like cirrhosis. Patient has been taken Naproxen over the past two days. Dr. Drake agrees with transfusing, sending to ICU. Dr. Drake stated he will follow the patient closely and scope him tomorrow morning. At 175, discussed patient case with Dr. Jara, hospitalist, who accepted the patient to the ICU. Patient will be admitted to the ICU with dx of GI bleed, symptomatic anemia. Patient understands and agrees with this plan. Patient's blood pressure much improved up to 110/70 - Diagnoses Provider Diagnoses: Anemia, GI bleed - Physician Notifications Discussed Care Of Patient With: Kraig Drake Time Discussed With Above Provider: 16:20 Instructed by Provider To: Other - Discussed patient case with LOLA Car, who will come see the patient in the ED. At 1744 discussed with LOLA Car , who saw the patient at bedside and stated that because platelets are 209, doesnt look like cirrhosis. Patient has been taken Naproxen over the past two days. Dr. Drake agrees with transfusing, sending to ICU, and waiting until patient is more stable before scoping the patient. Dr. Drake stated he will follow the patient closely and scope him tomorrow morning. At 175, discussed patient case with Dr. Jara, hospitalist, who accepted the patient to the ICU. - Critical Care Time Critical Care Time: 75-104 min - 75 min Discharge ED - Sign-Out/Discharge Documenting (check all that apply): Patient Departure - ICU Patient Received Moderate/Deep Sedation with Procedure: No - Discharge Plan Condition: Fair Disposition: ADMITTED TO [facility] - Billing Disposition and Condition Condition: FAIR Disposition: Admitted to [facility] - Attestation Statements Document Initiated by Scribe: Yes Documenting Scribe: Abhilash Youngblood Provider For Whom Rizwan is Documenting (Include Credential): Araceli Bloom MD Scribe Attestation: Abhilash Crawley, scribed for Araceli Bloom MD on 10/17/18 at 1840. Scribe Documentation Reviewed: Yes Provider Attestation: The documentation as recorded by the Abhilash faria accurately reflects the service I personally performed and the decisions made by me, Araceli Bloom MD Status of Scribe Document: Viewed
[2018-10-17 17:28] LABS: INR 1.16 (0.82-1.09)
[2018-10-17] MEDS ORDERED: Octreotide Acetate* 500 MCG in NS 0.9% 100 ML* 100 ML IV SCH ×3 (17:30→21:00)
[2018-10-17 17:38] LABS: ABS Lymphocytes 1.8 10^3/ul (1.0-4.8); ABS Monocytes 1.4 10^3/ul (0-0.8); ABS Neutrophils 13.9 10^3/ul (1.5-7.7); Eosinophil % 0.1 %; Hematocrit 21 % (42-52); Lymphocyte % 10.4 %; Mean Corpuscular HGB Conc 33 g/dL (31-36); Mean Corpuscular Hemoglobin 32 pg (27-31); Mean Corpuscular Volume 96 fL (80-94); Platelet Count 209 10^3/uL (150-450); Red Blood Count 2.22 10^6 /uL (4.18-5.48); Red Cell Distribution Width 13 % (10-15); White Blood Count 17.1 10^3/uL (3.5-10.8)
[2018-10-17 17:43] LABS: Alcohol < 10 mg/dL (<10)
[2018-10-17 17:55] LABS: ALT 9 U/L (7-52); AST 13 U/L (13-39); Albumin 2.7 g/dL (3.2-5.2); Albumin/Globulin Ratio 1.6 (1-3); Alkaline Phosphatase 63 U/L (34-104); Anion Gap 6 mmol/L (2-11); BUN/Creatinine Ratio 48.8 (8-20); Blood Urea Nitrogen 39 mg/dL (6-24); CO2 Carbon Dioxide 24 mmol/L (22-32); Calcium 7.3 mg/dL (8.6-10.3); Chloride 111 mmol/L (101-111); EGFR African American 130.2 (>60); EGFR Non-African American 107.6 (>60); Globulin 1.7 g/dL (2-4); Glucose 117 mg/dL (70-100); Potassium 4.1 mmol/L (3.5-5.0); Sodium 141 mmol/L (135-145); Total Protein 4.4 g/dL (6.4-8.9)
[2018-10-17 18:00] LABS: Troponin I 0.05 ng/mL (<0.04)
[2018-10-17] MEDS ORDERED: Ondansetron INJ* 2 MG/ML VIAL IV PRN (18:27)
[2018-10-17] MEDS ORDERED: Iohexol 300* (CONTRAST) 10 ML SDV IV ONE (18:40)
--- NOTE | 2018-10-17 19:03 | CONS ---
CONSULTATION REPORT: DATE OF CONSULT: 10/17/18 REQUESTING PHYSICIAN: Dr. Bloom in the emergency room. LOCATION OF THE CONSULTATION: Bed 14 in the emergency room. INDICATION: Hematemesis, hypotension. NARRATIVE: Mr. Garcia is a 37-year-old gentleman, who is an active heroin abuser and alcohol abuser, who states that for the past 2 days he has been feeling very unwell. Approximately 2 days ago, he began having headaches and then it transitioned into nausea and vomiting. He has been vomiting over the past 2 days. He states that the vomitus was nonbloody up until about noon today ; 48 hours of nonbloody vomit and then at noon today, he started vomiting bright red blood. He states that he vomited a large amount of bright red blood at noon and then another episode around 2 p.m. today. EMS was called and he was brought to the emergency room. Currently, his only complaint is feeling extremely cold. He denies any nausea right now. He has not vomited since 2 p.m., it is now 5:30. He denies any abdominal pain. He denies any history of liver disease; however, he has been drinking anywhere from 4 to 6 beers per day everyday for the past 15 years. He also is an active heroin abuser. No family history of liver disease. For the past 2 days, he has also been using naproxen. He states that he is taking between 2 and 4 tablets each day for the past 2 days for the headache. He denies using any nonsteroidals prior than 48 hours ago. Denies any history of GI bleeding in the past. PAST MEDICAL HISTORY: Significant for heroin abuse and alcohol abuse. CURRENT MEDICATIONS AT HOME: None. ALLERGIES: No known drug allergies. FAMILY HISTORY: He denies any family history of liver disease. No upper GI malignancies. SOCIAL HISTORY: Positive alcohol, positive heroin, positive tobacco. REVIEW OF SYSTEMS: Twelve systems reviewed, other than that mentioned in the HPI were unremarkable. PHYSICAL EXAM: Temperature is 97.1, blood pressure is currently 115/52 with a pulse of 70, respiratory rate of 16, O2 sat is 95%. General: Diaphoretic male , in no apparent distress. Alert, oriented, pleasant, fluent. When I first saw him approximately 20 minutes before the examination while labs are being obtained, his skin color was definitely more pale than it is now. He has normal skin color at this point. HEENT: No scleral icterus. No pale conjunctivae. Skin: No spider angiomata noted. Heart: Regular rate and rhythm. Lungs: Clear to auscultation. Abdomen: Positive bowel sounds, soft, nontender, nondistended. DIAGNOSTIC STUDIES/LAB DATA: Labs of note: Labs were just drawn. The patient is a very difficult IV access. Labs show a white count of 17.1, hemoglobin of 7 , platelet count of 209. His INR is 1.16. ASSESSMENT AND PLAN: This is a 37-year-old gentleman who has had 2 days of vomiting with 2 episodes of hematemesis here in the past few hours. He comes in pale with a hemoglobin of 7. Platelet count is 209 which makes cirrhosis slightly less likely. At this point, possible etiologies for his bleeding would include esophageal varices due to his alcohol use potentially resulting in cirrhosis, but again his platelet count is 209 which would be a little atypical for somebody who has cirrhosis with that normal of a platelet count having developed varices. Another potential etiology would include peptic ulcer disease due to his NSAID use; however, this has just been over the past 48 hours which would be less likely and then another possible etiology would be a Danielle-Redman tear. The patient tells me that he had been retching and vomiting for the past 48 hours and then just today he started throwing up some blood. His INR is 1.16. I do not have a BUN back yet; I will await this. At this point, he does need 2 large-bore IVs. He needs IV fluids and blood products, frequent hemoglobin checks. He should have both octreotide and IV PPI started. Given his history and platelet count of 209, I think esophageal varices is slightly less likely than a Danielle-Redman tear. Right now, his vital signs are very stable. I think if he remains stable, we can give him blood, the IV octreotide, IV Protonix, and I would like him resuscitate a little bit better and then perform an endoscopy at a later time; however, if he starts vomiting bright red blood again or drops his blood pressure, we may need to intervene with an endoscopy sooner. We will continue to follow along extremely closely. He should be admitted to the intensive care unit. [id number]/[facility] #: [id number] [facility]ITALNikkie
[2018-10-17] MEDS: Octreotide Acetate* 500 MCG in NS 0.9% 100 ML* 100 ML IV SCH (20:52)
[2018-10-17] MEDS: NS 0.9% 1000 ML** 1,000 ML IV SCH (21:06)
--- NOTE | 2018-10-17 21:39 | PN ---
Hospitalist Progress Note Date of Service: 10/17/18 HOSPITALIST ADDENDUM Called by TUBE TELLER because patient's troponin went up to 0.10. He has no complaints of chest pain and VSS. EKG shows NSR at 77bpm with no acute ischemic changes. Will continue to trend troponins and monitor in ICU.
[2018-10-17 23:26] LABS: Urine Benzodiazepine Screen None Detected (None Detect); Urine Opiates Screen Presumptive Positive (None Detect)
--- NOTE | 2018-10-18 00:49 | HP ---
CC: Dr. Shaffer * [facility] MEDICINE HISTORY AND PHYSICAL: DATE OF ADMISSION: 10/17/18 PRIMARY CARE PHYSICIAN: Dr. Shaffer. ATTENDING PHYSICIAN: Dr. Colby Jara * (dictation provided by Nikky Monique NP ) CHIEF COMPLAINT: Vomiting red blood. HISTORY OF PRESENT ILLNESS: Mr. Garcia is a 37-year-old male with a past medical history of depression, alcoholism, and chronic substance abuse, who presents to the hospital today after developing bright red blood vomiting. Mr. Garcia states that he has been feeling nauseous for the past couple of days. Two days ago, he reports that was the last time that he drank alcohol or shot heroin. Since then, he has been feeling nauseous and vomited 3 times. He states he did not feel that this was withdrawal as he had taken methadone. Today, he got up again feeling nauseous and around noon, he went to bathroom and vomited a large amount of bright red blood. At the same time, he had dark black tarry stool per rectum, which he had not had previously. His neighbor called 911 and he was brought to the emergency room. In the emergency room, he was pale, cool, and diaphoretic. His vital signs showed that he was hypotensive with a blood pressure of 72/43. He was resuscitated with intravenous fluids and has responded well. His blood pressure is now 130/68 with a heart rate of 83. His workup thus far showed a white blood cell count of 17.1 with a hemoglobin of 7.0, hematocrit 21. He had a lactic acid of 3.2, a troponin of 0.05, and his platelet count was normal. PAST MEDICAL HISTORY: 1. Alcohol abuse. 2. Substance abuse. 3. Depression. MEDICATIONS: The patient states he takes no routine medications as outpatient. FAMILY HISTORY: Reviewed and noncontributory. SOCIAL HISTORY: The patient reports that he smokes a half of pack cigarettes a day. He drinks alcohol though he states he only does about 4 times a week. He also shoots heroin, although says he does so infrequently and he does not anticipate having withdrawal symptoms. He states that his girlfriend will be the healthcare proxy. REVIEW OF SYSTEMS: A 14-point review of systems was completed with Mr. Garcia and all those not mentioned above were negative. PHYSICAL EXAMINATION GENERAL: Mr. Garcia is sitting in the bed, he is in no acute distress. VITAL SIGNS: Temperature 97.1, pulse rate 83, respiratory rate 21, O2 saturation 100% on room air, blood pressure 122/65. LUNGS: Clear to auscultation bilaterally with no accessory muscle use and good aeration. HEART: S1, S2. No murmur, rub, or gallop, and regular. ABDOMEN: Soft, nontender with bowel sounds positive x4. NEURO: He is alert. He is oriented x3. He moves all extremities equally. There is no facial asymmetry or focal weakness. Extraocular movements are intact. EXTREMITIES: No cyanosis or edema. SKIN: Intact. DIAGNOSTIC STUDIES/LAB DATA: Sodium 141, potassium 4.1, chloride 111, serum bicarbonate 24, BUN 39, creatinine 0.80, glucose 117, lactic acid 3.2. Troponin 0.05. Total bili 0.10. Ammonia 32. WBC 17.1, hemoglobin 7.0, hematocrit 21, platelet count 209. Serum alcohol level is less than 10. Chest x-ray shows no radiographic evidence of cardiopulmonary abnormality. ASSESSMENT AND PLAN: Mr. Garcia is a 37-year-old male with past medical history of alcoholism and substance abuse, who presented to the hospital today with concern for vomiting of bright red blood with hypotension and hypovolemic shock that responded well to intravenous fluids. Our plans are for inpatient admission to the intensive care unit for the followin. Hypotensive shock: The patient's hypotension has resolved with intravenous fluids in the ED. His lactic acid was elevated at 3.2 and I will repeat that later to verify that he is perfusing well. He will be in the intensive care unit for close monitoring. He will be receiving 2 units of packed red blood cells, which have been ordered. We will be monitoring his H and H closely. 2. Upper gastrointestinal bleed: I appreciate the consultation with Dr. Drake. The patient is already on Protonix and will be starting on octreotide drip as well. He will have 2 large bore IVs at all time. We will continue with intravenous fluids. We will monitor him closely in the ICU. I suspect that etiology could be likely Danielle-Redman tear, possible esophageal varices but less likely peptic ulcer disease. I anticipate the patient will need endoscopy. If he is stable through the night, he will be able to have that tomorrow. If he becomes unstable, we will reach out to Dr. Drake for consideration of derrek quinn. 3. Anemia secondary to blood loss: The patient will have 2 units of packed red blood cells as per above. 4. History of substance abuse. The patient states that he does take heroin but does not do it frequently and he does not anticipate having withdrawal symptoms. I think the prudent thing will be to just observe him closely in the ICU and if he develops any withdrawal symptoms, we can add treatment such as Suboxone as indicated. 5. Alcohol withdrawal. Again, the patient states that he has not had alcohol for 2 days and he does not have any withdrawal symptom now. We will watch him closely for symptoms of withdrawal and administer medications as appropriate. 6. Code status is full code. 7. DVT prophylaxis with SCDs as the patient with gastrointestinal bleed. TIME SPENT: Approximately 60 minutes was spent on the admission of this patient , more than half the time was spent with the patient at the bedside reviewing the events leading up to this hospitalization, performing the physical examination, and reviewing my plan of care. NIKKY MONIQUE NP [id number]/CPS #: [id number] SEAN
[2018-10-18 00:56] LABS: Hematocrit 21 % (42-52); Hemoglobin 7.4 g/dL (14.0-18.0)
[2018-10-18] MEDS ORDERED: Pantoprazole* 80 mg IN NS 80 MG/250 ML BAG IV SCH ×2 (03:30→16:00)
[2018-10-18] MEDS: NS 0.9% 1000 ML** 1,000 ML IV SCH ×2 (04:04→11:21)
[2018-10-18] MEDS: Pantoprazole* 80 mg IN NS 80 MG/250 ML BAG IV SCH ×2 (04:59→14:42)
[2018-10-18] MEDS: Octreotide Acetate* 500 MCG in NS 0.9% 100 ML* 100 ML IV SCH ×2 (05:02→14:42)
[2018-10-18 05:10] LABS: ABS Eosinophils 0.1 10^3/ul (0-0.6); ABS Lymphocytes 2.6 10^3/ul (1.0-4.8); ABS Monocytes 0.7 10^3/ul (0-0.8); ABS Neutrophils 5.8 10^3/ul (1.5-7.7); Eosinophil % 1.1 %; Hematocrit 23 % (42-52); Hemoglobin 7.8 g/dL (14.0-18.0); Lymphocyte % 27.8 %; Mean Corpuscular HGB Conc 34 g/dL (31-36); Mean Corpuscular Hemoglobin 31 pg (27-31); Mean Corpuscular Volume 91 fL (80-94); Mean Platelet Volume 8.3 fL (7.4-10.4); Platelet Count 165 10^3/uL (150-450); Red Blood Count 2.52 10^6 /uL (4.18-5.48); Red Cell Distribution Width 15 % (10-15); White Blood Count 9.3 10^3/uL (3.5-10.8)
[2018-10-18 05:27] LABS: BUN/Creatinine Ratio 35.3 (8-20); Blood Urea Nitrogen 30 mg/dL (6-24); CO2 Carbon Dioxide 26 mmol/L (22-32); EGFR African American 121.4 (>60); EGFR Non-African American 100.3 (>60); Glucose 122 mg/dL (70-100); Potassium 4.3 mmol/L (3.5-5.0); Sodium 139 mmol/L (135-145)
[2018-10-18 05:30] LABS: Chloride 113 mmol/L (101-111)
[2018-10-18 10:38] LABS: Hematocrit 26 % (42-52); Hemoglobin 9.2 g/dL (14.0-18.0)
--- NOTE | 2018-10-18 14:21 | CONSULT ---
Consult Consult: Consultation Note -- Critical Care Requesting Physician: Dr Colby Jara Reason for consult: Upper GI hemorrhage Limitations in history/physical: none Date of consult: 10/18/2018 HPI: 37y M w/pmhx of depression, alcohol abuse, substance abuse with opiates; presented 10[place]17 [place] [facility] [place] blood. Complaints of nausea for days. Last drink was a few days back according to patient. On 10/17 he was nauseous, vomited bright red blood. Also has been noticing dark black stools. in The ER he was pale, cold, hypotensive 70s. Started on IV fluids. Labs demonstrated a hemoglobin of 7.0, LA 3.2 with normal platelets. HE was started a PPI infusion, Octreotide infusion, ordered for PRBC transfusion. Overnight since admission he has received a total of 4 PRBC. He is awake, alert, no distress, BP stable, HR 90s, afebrile. ED/floor Course: as above ROS: negative except for pertinent positives mentioned above PMHx: depression, alcohol abuse, substance abuse with opiates PSHx: none Family History: none Social History: Alcohol-states he drinks 4x a week only, Smoking-1/2 ppd, Drug use-infrequent heroin use; Girlfriend is HCP. Allergies: NKDA Home Medications: none Tele: NSR Vitals: Vital Signs Temp 98.5 F 10/18/18 12:00 Pulse 60 10/18/18 12:00 Resp 14 10/18/18 13:00 BP 128/81 10/18/18 12:00 Pulse Ox 100 10/18/18 12:00 Intake & Output 10/17/18 10/18/18 10/18/18 18:59 06:59 18:59 Intake Total 2300.3 1688 Output Total 600 1250 Balance 1700.3 438 Weight 74.843 kg 83.5 kg Intake: IV Fluids 1105 1068 NS 1105 1068 Medicated IV 282.3 296 Octreotide 82 85 Protonix 200.3 211 Packed Cells 913 324 Output: Urine 600 1250 Other: Date of Last Bowel t t Movement # Bowel Movements 1 0 Estimated Stool Amount Small # Voids 0 0 O2/Vent: RA Infusions: Octretide, Protonix, NS Current Medications: Octreotide Acetate 500 mcg/ (Sodium Chloride) 101 mls @ 10.1 mls/hr IV Q10H [facility] Last Admin: 10/18/18 05:02 Dose: 10.1 mls/hr Pantoprazole Sodium (Protonix Iv Bag*) 80 mg in 250 mls @ 25 mls/hr IV Q10H [facility] Last Admin: 10/18/18 04:59 Dose: 25 mls/hr Lactated Ringer's (Lactated Ringers 1000 Ml Bag*) 1,000 mls @ 75 mls/hr IV PER RATE [facility] Ondansetron HCl (Zofran Inj*) 4 mg IV Q4H PRN PRN Reason: NAUSEA Physical Exam: Constitutional: awake, alert, no distress, no diaphoresis Head: normocephalic, atraumatic Eyes: + pallor, no icterus ENT: moist mucous membranes Neck: soft, supple, no jvd, no stridor CVS: normal rate, regular, no murmur Chest/Resp: bilateral air entry, no rhales, no wheeze, no rhonchi, no acc muscle use Abdomen/GI: soft, nontender, nondistended, BS+ Ext/Msk: warm, pulses+, no edema Skin: intact, warm Neuro: awake, alert, orientedx3, moving all extremities, no gross focal deficit Psych: normal affect Labs: Laboratory Results - last 24 hr 10/17/18 10/17/18 10/17/18 16:30 16:30 16:30 WBC RBC Hgb Hct MCV MCH MCHC RDW Plt Count MPV Neut % (Auto) Lymph % (Auto) [place] % (Auto) Eos % (Auto) Baso % (Auto) Absolute Neuts (auto) Absolute Lymphs (auto) Absolute Monos (auto) Absolute Eos (auto) Absolute Basos (auto) Absolute Nucleated RBC Nucleated RBC % INR (Anticoag Therapy) 1.16 H APTT 28.0 Sodium 141 Potassium 4.1 Chloride 111 Carbon Dioxide 24 Anion Gap 6 BUN 39 H Creatinine 0.80 Est GFR ( Amer) 130.2 Est GFR (Non-Af Amer) 107.6 BUN/Creatinine Ratio 48.8 H Glucose 117 H Lactic Acid Calcium 7.3 L Total Bilirubin 0.10 L AST 13 ALT 9 Alkaline Phosphatase 63 Ammonia 32 Troponin I 0.05 H* Total Protein 4.4 L Albumin 2.7 L Globulin 1.7 L Albumin/Globulin Ratio 1.6 Lipase 11 Urine Opiates Screen Ur Barbiturates Screen Ur Phencyclidine Scrn Ur Amphetamines Screen U Benzodiazepines Scrn Urine Cocaine Screen U Cannabinoids Screen Serum Alcohol < 10 Blood Type Antibody Screen Crossmatch 10/17/18 10/17/18 10/17/18 17:27 17:27 17:27 WBC 17.1 H RBC 2.22 L Hgb 7.0 L Hct 21 L MCV 96 H MCH 32 H MCHC 33 RDW 13 Plt Count 209 MPV 9.0 Neut % (Auto) 81.3 Lymph % (Auto) 10.4 [place] % (Auto) 8.1 Eos % (Auto) 0.1 Baso % (Auto) 0.1 Absolute Neuts (auto) 13.9 H Absolute Lymphs (auto) 1.8 Absolute Monos (auto) 1.4 H Absolute Eos (auto) 0.0 Absolute Basos (auto) 0.0 Absolute Nucleated RBC 0.0 Nucleated RBC % 0.0 INR (Anticoag Therapy) APTT Sodium Potassium Chloride Carbon Dioxide Anion Gap BUN Creatinine Est GFR ( Amer) Est GFR (Non-Af Amer) BUN/Creatinine Ratio Glucose Lactic Acid 3.2 H* Calcium Total Bilirubin AST ALT Alkaline Phosphatase Ammonia Troponin I Total Protein Albumin Globulin Albumin/Globulin Ratio Lipase Urine Opiates Screen Ur Barbiturates Screen Ur Phencyclidine Scrn Ur Amphetamines Screen U Benzodiazepines Scrn Urine Cocaine Screen U Cannabinoids Screen Serum Alcohol Blood Type O Positive Antibody Screen Negative Crossmatch See Detail 10/17/18 10/17/18 10/17/18 20:06 22:39 23:10 WBC RBC Hgb Hct MCV MCH MCHC RDW Plt Count MPV Neut % (Auto) Lymph % (Auto) [place] % (Auto) Eos % (Auto) Baso % (Auto) Absolute Neuts (auto) Absolute Lymphs (auto) Absolute Monos (auto) Absolute Eos (auto) Absolute Basos (auto) Absolute Nucleated RBC Nucleated RBC % INR (Anticoag Therapy) APTT Sodium Potassium Chloride Carbon Dioxide Anion Gap BUN Creatinine Est GFR ( Amer) Est GFR (Non-Af Amer) BUN/Creatinine Ratio Glucose Lactic Acid Calcium Total Bilirubin AST ALT Alkaline Phosphatase Ammonia Troponin I 0.10 H* 0.10 H* Total Protein Albumin Globulin Albumin/Globulin Ratio Lipase Urine Opiates Screen Presumptive positive A Ur Barbiturates Screen None detected Ur Phencyclidine Scrn None detected Ur Amphetamines Screen None detected U Benzodiazepines Scrn None detected Urine Cocaine Screen None detected U Cannabinoids Screen None detected Serum Alcohol Blood Type Antibody Screen Crossmatch 10/17/18 10/18/18 10/18/18 23:10 00:41 05:00 WBC RBC Hgb 7.4 L Hct 21 L MCV MCH MCHC RDW Plt Count MPV Neut % (Auto) Lymph % (Auto) [place] % (Auto) Eos % (Auto) Baso % (Auto) Absolute Neuts (auto) Absolute Lymphs (auto) Absolute Monos (auto) Absolute Eos (auto) Absolute Basos (auto) Absolute Nucleated RBC Nucleated RBC % INR (Anticoag Therapy) APTT Sodium 139 Potassium 4.3 Chloride 113 H Carbon Dioxide 26 Anion Gap Not Reportable BUN 30 H Creatinine 0.85 Est GFR ( Amer) 121.4 Est GFR (Non-Af Amer) 100.3 BUN/Creatinine Ratio 35.3 H Glucose 122 H Lactic Acid 1.0 Calcium 7.0 L Total Bilirubin AST ALT Alkaline Phosphatase Ammonia Troponin I Total Protein Albumin Globulin Albumin/Globulin Ratio Lipase Urine Opiates Screen Ur Barbiturates Screen Ur Phencyclidine Scrn Ur Amphetamines Screen U Benzodiazepines Scrn Urine Cocaine Screen U Cannabinoids Screen Serum Alcohol Blood Type Antibody Screen Crossmatch 10/18/18 10/18/18 10/18/18 05:00 10:20 12:00 WBC 9.3 RBC 2.52 L Hgb 7.8 L 9.2 L Hct 23 L 26 L MCV 91 MCH 31 MCHC 34 RDW 15 Plt Count 165 MPV 8.3 Neut % (Auto) 63.0 Lymph % (Auto) 27.8 [place] % (Auto) 7.7 Eos % (Auto) 1.1 Baso % (Auto) 0.4 Absolute Neuts (auto) 5.8 Absolute Lymphs (auto) 2.6 Absolute Monos (auto) 0.7 Absolute Eos (auto) 0.1 Absolute Basos (auto) 0.0 Absolute Nucleated RBC 0.0 Nucleated RBC % 0.0 INR (Anticoag Therapy) APTT Sodium Potassium Chloride Carbon Dioxide Anion Gap BUN Creatinine Est GFR ( Amer) Est GFR (Non-Af Amer) BUN/Creatinine Ratio Glucose Lactic Acid Calcium Total Bilirubin AST ALT Alkaline Phosphatase Ammonia Troponin I 0.03 Total Protein Albumin Globulin Albumin/Globulin Ratio Lipase Urine Opiates Screen Ur Barbiturates Screen Ur Phencyclidine Scrn Ur Amphetamines Screen U Benzodiazepines Scrn Urine Cocaine Screen U Cannabinoids Screen Serum Alcohol Blood Type Antibody Screen Crossmatch Imaging: reviewed Assessment: 37y M w/pmhx of depression, alcohol abuse, substance abuse with opiates; presented 10/17 to [facility] [place] for [place] blood. Complaints of nausea for days. Last drink was a few days back according to patient. On 10/17 he was nauseous, vomited bright red blood. Also has been noticing dark black stools. in The ER he was pale, cold, hypotensive 70s. Started on IV fluids. Labs demonstrated a hemoglobin of 7.0, LA 3.2 with normal platelets. HE was started a PPI infusion, Octreotide infusion, ordered for PRBC transfusion -Upper GI hemorrhage -Acute blood loss anemia -Hemorrhagic Shock Alcohol abuse Heroin abuse Depression Plan: Neuro- -stable, alert -monitor for signs of alcohol withdrawal, last drink reportedly 3-4 days back, so this would be appropriate time interval for a start to withdrawal state -WAM protocol may be initiated -Delirium prec; avoid BDZ CVS- -BP improved with IVF and PRBC tranfusions; warm ext, LA normalized. -no actively bleeding noted currently, no further vomitting episodes -cont IVF -h/h q6h; maintain hg>7 -hold antiplatelets/AC -Maintain MAP>65 Resp- -RA, no distress -Wean Fio2 to keep sat>92% ID- afebrile. wbc 17, now normalized. nontoxic appearance. CXR without infitlrate. Likely was reactive from bleeding. no abx indicated. GI- -NPO -Suspect UGI hemorrhage as source; variceal vs PUD vs gastritis. has RF for all given alcohol abuse history. -cont PPI infusion and Octreotide infusion -now s/p 4 PRBC; hg from 7.0 to 9.2 -IVF -GI consult called; reviewed; planned EGD today -cont h/h q6h Renal- -Cr normal; BUN was elevated likely from GI transport of blood and mixed hypovolemia/hemorrhage -changed IVF to LR 75cc/hr -Transfuse as needed -strict I/O, replete to keep K>4, Mg>2 -harris as indicated Heme- -acute blood loss from UGI hemorrhage -s/p 4 prbc, hg now 9.2 -h/h q6h -no antiplatelets or AC -DVT proph wtih SCDs only Endo- Maintain BG<200, insulin protocol as needed Musculsk- pressure ulcer prophylaxis. Bedrest. Wounds- none Nutrition- NPO DVT prophylaxis: SCD only GI prophylaxis: PPI Central Line: no Arterial Line: no Harris Cathetor: no Disposition: Patient requires Critical Care/ICU for UGI hemorrhage, frequent lab draws and transfusions Patient Clinical Status: guarded, critical Code Status: full code Total Critical Care time is 50 minutes, excluding procedures/teaching Himanshu Velez MD Edge Setter (Electronically Signed)
[2018-10-18] MEDS: Lactated Ringers 1000 ML Bag* 1,000 ML IV SCH (14:27)
[2018-10-18] MEDS ORDERED: Midazolam* 1 MG/ML 10 ML VIAL (10 MG) ONE (15:35)
[2018-10-18] MEDS ORDERED: fentaNYL* 50 MCG/ML 2 ML VIAL (100 MCG VIAL) ONE (15:35)
--- NOTE | 2018-10-18 16:09 | PN ---
Progress Note - Progress Note Date of Service: 10/18/18 Note: EGD 6mg IV versed, 75mcg IV fent E----> Danielle Redman Tear, nonbleeding, large HH G--->nml d--->nml MWT ---finish PPI bag, then switch to bid PPI orally x 2-3 weeks, then q day x 2 weeks then can stop ---avoid vomiting ---stop Etoh ----stop heroin Kraig Drake MD [facility], [phone]
[2018-10-18 16:44] LABS: Hematocrit 27 % (42-52); Hemoglobin 9.4 g/dL (14.0-18.0)
[2018-10-18 17:05] LABS: BUN/Creatinine Ratio 23.5 (8-20); Calcium 7.7 mg/dL (8.6-10.3); EGFR African American 121.4 (>60); EGFR Non-African American 100.3 (>60); Magnesium 1.5 mg/dL (1.9-2.7); Phosphorus 2.2 mg/dL (2.5-5.0); Potassium 4.1 mmol/L (3.5-5.0)
[2018-10-18] MEDS ORDERED: Magnesium Sulf 4 GM/100 ML IV* 4,000 MG/100 ML BAG IVPB ONE (18:00)
[2018-10-18] MEDS: Nicotine PATCH 14 MG/24 HR* PATCH TRANSDERM SCH (20:15)
[2018-10-18 22:10] LABS: Hematocrit 27 % (42-52); Hemoglobin 9.3 g/dL (14.0-18.0)
[2018-10-19 04:14] LABS: Hematocrit 27 % (42-52); Hemoglobin 9.5 g/dL (14.0-18.0)
[2018-10-19] MEDS: Pantoprazole IV* 40 MG IV SCH ×3 (06:02→21:36)
[2018-10-19] MEDS: Nicotine Patch Removal NOTE PATCH OFF SCH ×2 (06:02→22:08)
[2018-10-19] MEDS: Lactated Ringers 1000 ML Bag* 1,000 ML IV SCH (06:05)
[2018-10-19 06:23] LABS: ABS Eosinophils 0.1 10^3/ul (0-0.6); ABS Lymphocytes 2.1 10^3/ul (1.0-4.8); ABS Monocytes 0.6 10^3/ul (0-0.8); ABS Neutrophils 5.7 10^3/ul (1.5-7.7); Eosinophil % 1.6 %; Hematocrit 27 % (42-52); Hemoglobin 9.2 g/dL (14.0-18.0); Lymphocyte % 24.8 %; Mean Corpuscular HGB Conc 34 g/dL (31-36); Mean Corpuscular Hemoglobin 31 pg (27-31); Mean Corpuscular Volume 90 fL (80-94); Mean Platelet Volume 8.6 fL (7.4-10.4); Nucleated Red Blood Cells % 0.1; Platelet Count 182 10^3/uL (150-450); Red Blood Count 2.98 10^6 /uL (4.18-5.48); Red Cell Distribution Width 14 % (10-15); White Blood Count 8.5 10^3/uL (3.5-10.8)
[2018-10-19 06:43] LABS: BUN/Creatinine Ratio 15.1 (8-20); Calcium 7.9 mg/dL (8.6-10.3); EGFR African American 119.8 (>60); Magnesium 1.9 mg/dL (1.9-2.7); Phosphorus 3.1 mg/dL (2.5-5.0); Potassium 3.6 mmol/L (3.5-5.0)
[2018-10-19] MEDS: Nicotine PATCH 14 MG/24 HR* PATCH TRANSDERM SCH (08:23)
[2018-10-19] MEDS ORDERED: Magnesium Sulfate 2 GM IV* 2 GM/50 ML BAG IVPB ONE (09:02)
[2018-10-19] MEDS ORDERED: Lactated Ringers 1000 ML Bag* 1,000 ML IV SCH (09:03)
--- NOTE | 2018-10-19 09:54 | PN ---
Progress Note - Progress Note Date of Service: 10/19/18 Note: Progress Note -- Critical Care 24 hour events: -s/p EGD 10/18 with findings of danielle leona tear -no further bleeding overnight; still with dark stools, no more vomitting either -stable hgs overnight -tolerating full liquid diet for now -denies cp/sob/n/v/abd pain Tele: NSR Vitals: Vital Signs Temp 98.4 F 10/19/18 08:00 Pulse 72 10/19/18 09:04 Resp 20 10/19/18 09:04 BP 126/84 10/19/18 09:04 Pulse Ox 100 10/19/18 09:04 Intake & Output 10/18/18 10/19/18 10/19/18 18:59 06:59 18:59 Intake Total 2368 1756 310 Output Total 1850 5700 575 Balance 518 -3944 -265 Weight 79.8 kg Intake: IV Fluids 1068 445 LR 445 NS 1068 IVPB 477 LR 477 Medicated IV 296 394 Magnesium 105 Octreotide 85 Protonix 211 289 Oral 680 440 310 Packed Cells 324 Output: Urine 1850 5700 575 Other: Date of Last Bowel t 10/19/18 Movement # Bowel Movements 0 1 Estimated Stool Amount Medium Small # Voids 0 O2/Vent: RA Infusions: LR 50 Current Medications: Magnesium Sulfate (Magnesium Sulfate 2 Gm Iv*) 2 gm in 50 mls @ 50 mls/hr IVPB ONCE ONE Stop: 10/19/18 10:01 Potassium Chloride (Potassium Chloride 20 Meq/100 Ml Ivpremix*) 20 meq in 100 mls @ 50 mls/hr IV Q2H [facility] Stop: 10/19/18 13:59 Lactated Ringer's (Lactated Ringers 1000 Ml Bag*) 1,000 mls @ 50 mls/hr IV PER RATE [facility] Stop: 10/19/18 21:00 Nicotine (Nicotine Patch 14 Mg/24 Hr*) 1 patch TRANSDERM DAILY [facility] Last Admin: 10/19/18 08:23 Dose: 1 patch Ondansetron HCl (Zofran Inj*) 4 mg IV Q4H PRN PRN Reason: NAUSEA Pantoprazole Sodium (Protonix Iv*) 40 mg IV BID [facility] Last Admin: 10/19/18 08:28 Dose: 40 mg Pharmacy Profile Note (Nicotine Patch Removal Note*) 1 note PATCH OFF 2100 [facility] Last Admin: 10/19/18 06:02 Dose: 1 note Physical Exam: Constitutional: awake, alert, no distress, no diaphoresis Head: normocephalic, atraumatic Eyes: + pallor, no icterus, pupils reactive bilaterally ENT: moist mucous membranes Neck: soft, supple, no jvd, no stridor CVS: normal rate, regular, no murmur Chest/Resp: bilateral air entry, no rhales, no wheeze, no rhonchi, no acc muscle use Abdomen/GI: soft, nontender, nondistended, BS+ Ext/Msk: warm, pulses+, no edema Skin: intact, warm Neuro: awake, alert, orientedx3, moving all extremities, no gross focal deficit Psych: normal affect Labs: Laboratory Results - last 24 hr 10/18/18 10/18/18 10/18/18 10:20 12:00 16:30 WBC RBC Hgb 9.2 L Hct 26 L MCV MCH MCHC RDW Plt Count MPV Neut % (Auto) Lymph % (Auto) [place] % (Auto) Eos % (Auto) Baso % (Auto) Absolute Neuts (auto) Absolute Lymphs (auto) Absolute Monos (auto) Absolute Eos (auto) Absolute Basos (auto) Absolute Nucleated RBC Nucleated RBC % Sodium 141 Potassium 4.1 Chloride 111 Carbon Dioxide 27 Anion Gap 3 BUN 20 Creatinine 0.85 Est GFR ( Amer) 121.4 Est GFR (Non-Af Amer) 100.3 BUN/Creatinine Ratio 23.5 H Glucose 121 H Calcium 7.7 L Phosphorus 2.2 L Magnesium 1.5 L Troponin I 0.03 10/18/18 10/18/18 10/19/18 16:30 22:03 03:51 WBC RBC Hgb 9.4 L 9.3 L 9.5 L Hct 27 L 27 L 27 L MCV MCH MCHC RDW Plt Count MPV Neut % (Auto) Lymph % (Auto) [place] % (Auto) Eos % (Auto) Baso % (Auto) Absolute Neuts (auto) Absolute Lymphs (auto) Absolute Monos (auto) Absolute Eos (auto) Absolute Basos (auto) Absolute Nucleated RBC Nucleated RBC % Sodium Potassium Chloride Carbon Dioxide Anion Gap BUN Creatinine Est GFR ( Amer) Est GFR (Non-Af Amer) BUN/Creatinine Ratio Glucose Calcium Phosphorus Magnesium Troponin I 10/19/18 10/19/18 06:09 06:09 WBC 8.5 RBC 2.98 L Hgb 9.2 L Hct 27 L MCV 90 MCH 31 MCHC 34 RDW 14 Plt Count 182 MPV 8.6 Neut % (Auto) 66.6 Lymph % (Auto) 24.8 [place] % (Auto) 6.6 Eos % (Auto) 1.6 Baso % (Auto) 0.4 Absolute Neuts (auto) 5.7 Absolute Lymphs (auto) 2.1 Absolute Monos (auto) 0.6 Absolute Eos (auto) 0.1 Absolute Basos (auto) 0.0 Absolute Nucleated RBC 0.0 Nucleated RBC % 0.1 Sodium 141 Potassium 3.6 Chloride 110 Carbon Dioxide 26 Anion Gap 5 BUN 13 Creatinine 0.86 Est GFR ( Amer) 119.8 Est GFR (Non-Af Amer) 99.0 BUN/Creatinine Ratio 15.1 Glucose 95 Calcium 7.9 L Phosphorus 3.1 Magnesium 1.9 Troponin I Imaging: reviewed Assessment: 37y M w/pmhx of depression, alcohol abuse, substance abuse with opiates; presented 10/17 to [facility] [place] ER for vomiting blood. Complaints of nausea for days. Last drink was a few days back according to patient. On 10/17 he was nauseous, vomited bright red blood. Also has been noticing dark black stools. in The ER he was pale, cold, hypotensive 70s. Started on IV fluids. Labs demonstrated a hemoglobin of 7.0, LA 3.2 with normal platelets. HE was started a PPI infusion, Octreotide infusion, ordered for PRBC transfusion -Upper GI hemorrhage 2/2 to Danielle-Wies Tear -Acute blood loss anemia -Hemorrhagic Shock, resolved Alcohol abuse Heroin abuse Depression Plan: Neuro- -stable, alert -monitor for signs of alcohol withdrawal -WAM protocol may be initiated -Delirium prec; avoid BDZ CVS- -BP stable, not tachy; dec LR to 50cc/hr for 12 more hours, then d/c -last h/h stable 9-10s; no further prbc given -check cbc today at 5pm and then AM -maintain hg>7 -hold antiplatelets/AC -Maintain MAP>65 Resp- -RA, no distress -Wean Fio2 to keep sat>92% ID- afebrile. wbc 8. initial wbc elevation likely reactive, no abx indicated. GI- -s/p EGD 10/19; danielle leona tear+ -tolerating full liquid diet; advance to mechanical soft for next day -cont IV PPI till discharge, then plan for PPI PO BID x2 weeks, then Daily x2 weeks -stable hg; no further vomitting/bleeding; dark stools likely from GI transit of previous blood -followup with GI for further recs Renal- -Cr normal; BUN was elevated likely from GI transport of blood and mixed hypovolemia/hemorrhage -LR 50cc/hr for 12 more hours; then d/c -replete KCL IV 40meq and MgSulfate 2gm IV x1 -strict I/O, replete to keep K>4, Mg>2 Heme- -acute blood loss from UGI hemorrhage/danielle leona tear -stable hg overnight 10-19 -check cbc q12 -no antiplatelets or AC -DVT proph wtih SCDs only Endo- Maintain BG<200, insulin protocol as needed Musculsk- pressure ulcer prophylaxis. ambulate as tolerated Wounds- none Nutrition- regular mech soft diet, advance as tolerated DVT prophylaxis: SCD only GI prophylaxis: PPI Central Line: RIJ 10/17 Arterial Line: no Farooq Cathetor: no Disposition: stable for transfer to medical floor Patient Clinical Status: stable Code Status: full code Himanshu Velez MD Urologic Surgeon (Electronically Signed)
[2018-10-19] MEDS: KCL 20 MEQ/100 ML IVPREMIX* 20 MEQ/100 ML BAG IV SCH ×2 (10:05→12:35)
[2018-10-19 17:43] LABS: Hematocrit 29 % (42-52); Hemoglobin 10.1 g/dL (14.0-18.0)
[2018-10-19] MEDS ORDERED: LORazepam TAB(*) 1 MG PO SCH (18:00)
[2018-10-19] MEDS ORDERED: Thiamine INJ* 100 MG/ML 2 ML VIAL IM ONE (18:00)
[2018-10-19] MEDS: cloNIDine TAB* 0.1 MG PO SCH (21:36)
[2018-10-20] MEDS: Pantoprazole IV* 40 MG IV SCH ×2 (08:27→20:17)
[2018-10-20] MEDS: cloNIDine TAB* 0.1 MG PO SCH ×2 (08:27→13:07)
[2018-10-20] MEDS: Nicotine PATCH 14 MG/24 HR* PATCH TRANSDERM SCH (08:28)
[2018-10-20 08:33] LABS: ABS Eosinophils 0.1 10^3/ul (0-0.6); ABS Lymphocytes 1.7 10^3/ul (1.0-4.8); ABS Monocytes 0.6 10^3/ul (0-0.8); ABS Neutrophils 5.9 10^3/ul (1.5-7.7); Eosinophil % 1.2 %; Hematocrit 29 % (42-52); Hemoglobin 9.9 g/dL (14.0-18.0); Lymphocyte % 20.6 %; Mean Corpuscular HGB Conc 34 g/dL (31-36); Mean Corpuscular Hemoglobin 31 pg (27-31); Mean Corpuscular Volume 90 fL (80-94); Platelet Count 221 10^3/uL (150-450); Red Blood Count 3.19 10^6 /uL (4.18-5.48); Red Cell Distribution Width 14 % (10-15); White Blood Count 8.3 10^3/uL (3.5-10.8)
[2018-10-20] MEDS ORDERED: KCL 20 MEQ/100 ML IVPREMIX* 20 MEQ/100 ML BAG IV ONE (09:24)
[2018-10-20] MEDS ORDERED: Magnesium Sulfate 1 GM IV* 1 GM/100 ML BAG IV ONE (09:24)
[2018-10-20 09:48] LABS: BUN/Creatinine Ratio 19.3 (8-20); Calcium 8.6 mg/dL (8.6-10.3); EGFR African American 124.8 (>60); EGFR Non-African American 103.1 (>60); Phosphorus 3.5 mg/dL (2.5-5.0); Potassium 4.1 mmol/L (3.5-5.0)
[2018-10-20] MEDS ORDERED: Melatonin 3 MG TAB PO PRN (11:12)
--- NOTE | 2018-10-20 11:16 | PN ---
Subjective Date of Service: 10/20/18 Interval History: Pt feeling well today. States he is tolerating PO and his appetite has increased from yesterday. Last BM was Thursday, reports melena at that time. Denies vomiting, hematemesis. Reporting difficulty sleeping, which he states is chronic. No other complaints. Denies agitation, tremors, palpitations. Objective Active Medications: Clonidine HCl (Catapres Tab*) 0.2 mg PO TID EVELYN Lorazepam (Ativan Tab(*)) 0 - 6 mg PO .PER [facility] PROTOCOL EVELYN; Protocol Nicotine (Nicotine Patch 14 Mg/24 Hr*) 1 patch TRANSDERM DAILY [facility] Ondansetron HCl (Zofran Inj*) 4 mg IV Q4H PRN Pantoprazole Sodium (Protonix Iv*) 40 mg IV BID [facility] Pharmacy Profile Note (Nicotine Patch Removal Note*) 1 note PATCH OFF 2099 [facility] Vital Signs: Temp Pulse Resp BP Pulse Ox 98.0 F 65 18 105/71 99 10/20/18 09:00 10/20/18 09:00 10/20/18 09:00 10/20/18 09:00 10/20/18 09:00 Oxygen Devices in Use Now: None Appearance: Pt is sitting up in bed. Pale. No acute distress. Eyes: No Scleral Icterus, PERRLA Ears/Nose/Mouth/Throat: Clear Oropharnyx, Mucous Membranes Moist, - - Poor dentition Neck: NL Appearance and Movements; NL JVP, Trachea Midline, - - R IJ line in place Respiratory: Symmetrical Chest Expansion and Respiratory Effort, Clear to Auscultation Cardiovascular: NL Sounds; No Murmurs; No JVD, RRR, No Edema Abdominal: NL Sounds; No Tenderness; No Distention, No Hepatosplenomegaly Extremities: No Edema, No Clubbing, Cyanosis Neurological: Alert and Oriented x 3, NL Muscle Strength and Tone, - - CN II- XII intact Nutrition: Taking PO's Result Diagrams: 10/20/18 08:20 10/20/18 08:20 Microbiology and Other Data: Microbiology 10/17/18 20:06 Nasal Screen MRSA (PCR) - Final Nasal Mrsa Not Detected Assess/Plan/Problems-Billing Assessment: 37yom PMHx EtOH abuse, substance abuse, depression presents with hematemesis, melena, SBP 70's, in hemorrhagic shock requiring 4U PRBC and was found to have a salma redman tear. - Patient Problems (1) Upper GI hemorrhage Comment: -Denies recent hematemesis; continues to have melena at times -EGD reveals nonbleeding Salma Redman tear -GI following; thank you for recommendations -Continue IV PPI BID while inpatient -Transition to PO BID x3 weeks, then daily [id number] (2) Acute blood loss anemia Comment: -Anemia d/t UGIB requiring 4U PRBC -H/H stabilizing -Continue to monitor (3) Hemorrhagic shock Comment: -Resolved -Admitted with SBP 70's -BP improved with blood transfusion, fluids -Now normotensive (4) Alcohol abuse Comment: -Continue WAM protocol -Has not required BDZ as of yet (5) Tobacco abuse Comment: -Continue nicotine patch (6) Depression Comment: -Not currently on home medications -Supportive care (7) DVT prophylaxis Comment: -Chemo ppx held in light of UGIB -Ambulation; SCDs (8) Full code status Status and Disposition: Inpatient. Discharge when stable.
[2018-10-20] MEDS ORDERED: Acetaminophen TAB* 325 MG PO ONE (15:47)
[2018-10-20] MEDS: Nicotine Patch Removal NOTE PATCH OFF SCH (21:44)
[2018-10-21 08:18] LABS: Hematocrit 29 % (42-52); Hemoglobin 9.9 g/dL (14.0-18.0); Mean Corpuscular HGB Conc 34 g/dL (31-36); Mean Corpuscular Hemoglobin 31 pg (27-31); Mean Corpuscular Volume 91 fL (80-94); Mean Platelet Volume 8.8 fL (7.4-10.4); Platelet Count 240 10^3/uL (150-450); Red Blood Count 3.16 10^6 /uL (4.18-5.48); Red Cell Distribution Width 14 % (10-15); White Blood Count 7.1 10^3/uL (3.5-10.8)
[2018-10-21 08:20] VITALS: BP 119/72
[2018-10-21 08:31] LABS: BUN/Creatinine Ratio 21.2 (8-20); Calcium 8.8 mg/dL (8.6-10.3); EGFR African American 121.4 (>60); EGFR Non-African American 100.3 (>60); Magnesium 1.9 mg/dL (1.9-2.7); Phosphorus 3.5 mg/dL (2.5-5.0); Potassium 3.9 mmol/L (3.5-5.0)
[2018-10-21 09:09] LABS: ABS Eosinophils 0.1 10^3/ul (0-0.6); ABS Lymphocytes 1.7 10^3/ul (1.0-4.8); ABS Monocytes 0.5 10^3/ul (0-0.8); ABS Neutrophils 4.7 10^3/ul (1.5-7.7); Eosinophil % 1.6 %; Lymphocyte % 24.2 %; Nucleated Red Blood Cells % 0.1
[2018-10-21] MEDS: Pantoprazole IV* 40 MG IV SCH (09:17)
[2018-10-21] MEDS: Nicotine PATCH 14 MG/24 HR* PATCH TRANSDERM SCH (09:17)
--- NOTE | 2018-10-21 17:04 | DS ---
CC: Dr. Johnie Shaffer * DISCHARGE SUMMARY: DATE OF ADMISSION: 10/17/18 DATE OF DISCHARGE: 10/21/18 PRIMARY CARE PROVIDER: Dr. Johnie Shaffer. ATTENDING PHYSICIAN: Dr. Phylicia Edward * (dictated by BALDEV Armas). PRIMARY DIAGNOSIS: Upper gastrointestinal bleed due to Danielle-Redman tear. SECONDARY DIAGNOSES: 1. Substance abuse. 2. Alcohol abuse. 3. Tobacco abuse. 4. Depression. CONSULTATIONS WHILE IN THE HOSPITAL: GI consult. Assessment and plan: A 37- year-old gentleman with 2 days of vomiting, 2 episodes of hematemesis, comes in pale with hemoglobin of 7, platelet count 209,000 making cirrhosis less likely. Etiologies include esophageal varices due to alcohol use, peptic ulcer disease due to NSAID use, Danielle-Redman tear. The patient reports retching and vomiting for the past 48 hours and then vomiting blood. He needs IV fluids, blood products, frequent hemoglobin checks, octreotide and IV PPI. If he remains stable, we can give blood, IV octreotide, IV Protonix, and perform endoscopy at a later time. If he starts vomiting bright red blood or drops his blood pressure, we may need to intervene with an endoscopy sooner. Admit to ICU. STUDIES WHILE IN THE HOSPITAL: 1. EGD: Esophagus: Danielle-Redman tear, nonbleeding, large HH. 2. Chest, abdomen and pelvis CT, impression: No consolidation, effusion, or edema. The esophagus appears unremarkable for CT. No acute disease as seen above. DISCHARGE MEDICATIONS: Continued home medications: None. New home medications: 1. Nicotine patch 14 mg per 24 hours, 1 patch transdermal daily, remove q.24 hours. 2. Pantoprazole 40 mg p.o. b.i.d. x3 weeks, then p.o. daily x2 weeks, then discontinue. HISTORY OF PRESENT ILLNESS/HOSPITAL COURSE: Mr. Garcia is a 37-year-old male with past medical history of depression, alcoholism, substance abuse, who presented to the hospital on 10/17/18 after vomiting bright red blood. For full and complete details, please see the history and physical dictated by Nikky Monique NP, but in short, the patient notes that he has had nausea and vomiting for approximately 2 days prior to admission. He reports that 2 days ago he drank alcohol and used heroin. Since then, he has felt nauseous, vomited 3 times. He also reported dark tarry stools per rectum. He arrived at the ER and was noted to be pale, cold, diaphoretic, hypotensive with a systolic blood pressure of 72. He was started on IV fluids. He was noted to have hemoglobin, hematocrit of 7.0 and 21 respectively, as well as a lactic acidosis. He was noted to be in hypovolemic shock. This responded well to IV fluids. He was also given 4 units of blood. GI was consulted and recommended IV octreotide and IV PPI, which were both started. They recommended continued stabilization and monitoring of the patient in the ICU. He remained stable and an EGD was performed the following day which revealed a Danielle-Erdman tear. The patient's IV octreotide was discontinued and he was continued on PPI. GI recommended b.i.d. PPI x2 weeks, then daily PPI x2 weeks, then discontinuation. Avoid vomiting, stop alcohol and heroin. The patient was monitored for approximately 48 hours after EGD to ensure stabilization of H and H. The patient's H and H trended upward and then stabilized. He is eager to be discharged. At this point, he will be discharged home. Currently, he denies abdominal pain, nausea , vomiting including hematemesis. He does note that he had melena yesterday and a environmental officer-colored stool last night. He denies dizziness, lightheadedness, shortness of breath. He has no other complaints. Mr. Garcia is stable for discharge home. REVIEW OF SYSTEMS: A 14-point review of systems has been performed and all the pertinent positives and negatives are in the HPI. All other systems are negative. PHYSICAL EXAMINATION: Vital signs are temperature 97.5 oral, heart rate 51, respiratory rate 18, oxygen saturation 100% on room air, blood pressure 119/72. General: Mr. Garcia is a well-developed, well-nourished, normal weight 37- year- old white male, who appears mildly pale. He is sitting up in his chair. He is fully dressed as he is eager for discharge. He is cooperative and appropriate. HEENT: Visual troy grossly intact. PERRL. EOMI. Nonicteric sclerae. Hearing grossly intact. Oral mucous membranes are moist. There are no lesions. The patient has poor dentition. The posterior pharynx is clear. Tongue is at midline. Cardiovascular: Regular rate and rhythm with S1, S2 present without murmurs, rubs, clicks, or gallops. There is no JVD. There is no peripheral edema. Radial and pedal pulses are palpable. Pulmonary: Symmetrical chest expansion without use of accessory muscles. Lungs are clear to auscultation bilaterally without rhonchi, wheezes, or rales. There is no digital clubbing or cyanosis. Abdomen: Flat. Bowel sounds noted in all quadrants. The abdomen is soft without tenderness to palpation. Musculoskeletal: Full range of motion without pain or deformities. Neuro: The patient is awake. He is alert and oriented x3 with cranial nerves grossly intact. He is able to move all of his extremities. Motor strength is 5/5 in the upper and lower extremities bilaterally. DISCHARGE PLAN: Mr. Garcia will be discharged to home. ACTIVITY: As tolerated. DIET: Soft diet. MEDICATIONS: 1. Continue pantoprazole 40 mg p.o. b.i.d. x3 weeks, then pantoprazole 40 mg p.o. daily x2 weeks, then discontinue. 2. Continue nicotine patches. Follow up with primary care provider for further management and refills. EDUCATION: 1. Follow up with primary care provider in 4 to 7 days, discuss recent hospitalization, new medications. 2. Discontinue use of alcohol and illicit substances such as heroin. 3. Return to the ER or nearest hospital if you experience any worsening of symptoms; return for hematemesis, dizziness, lightheadedness, loss of consciousness, dark and/or tarry stools, hematochezia; return for chest pain, shortness of breath, high fevers, chills, night sweats, or any other worrisome signs or symptoms. This is a summarized report of a complex medical history and hospital stay. For further details, please see the entire medical record. TIME SPENT: Approximately 35 minutes were spent on this discharge, greater than half that time was spent [id number] with the patient discussing discharge plans and instructions. BALDEV HOGAN [id number]/[facility] [place] #: [id number] SEAN
--- NOTE | 2018-10-22 22:01 | PRO ---
DATE OF PROCEDURE: 10/18/18 - ROOM #411 REFERRING PHYSICIAN: Dr. Shaffer.* PROCEDURE: EGD. INDICATION: Hematemesis. MEDICATIONS GIVEN: 75 mcg IV fentanyl, 6 mg IV Versed. DESCRIPTION OF PROCEDURE: After the EGD procedure including the risks, benefits , and alternatives not limited to perforation, surgery, and/or were explained to the patient, written consent was then obtained. IV medication was given and a bite block was placed between the teeth. An Olympus gastroscope was then inserted into the patient's mouth, advanced down the esophagus, into the stomach, into the distal duodenum. In the esophagus, at the GE junction, the Z-line was intact; however, he does have a Danielle-Redman tear. It is not bleeding. The scope was advanced through the GE junction into the body of the stomach. Retroflex view was unremarkable. Forward view also was unremarkable. The scope was advanced through a widely patent pylorus into the duodenal bulb , into the distal duodenum, both of which were unremarkable. Scope was then withdrawn from the patient. He tolerated the procedure well and was returned to the recovery room in stable condition. IMPRESSION: 1. Complete upper endoscopy into the distal duodenum. 2. Danielle-Redman tear. 3. The Danielle-Redman tear is likely the culprit for his hematemesis. [id number]/[facility] #: [id number] FA[facility]TON HOSPITALNikkie
== END 2018-10-21 09:35 | disposition home or self-care (01) | DRG 242 ==
LOC: ED 16:18 → ICU 18:17 → MED 10-19 09:45
PROVIDERS: ADMIT Internal Medicine; ATTEND Internal Medicine
PROC: 30233N1 Transfusion of Nonautologous Red Blood Cells into Peripheral Vein, Percutaneous Approach (ICD-10-PCS; principal; 2018-10-17)
PROC: 0DJ08ZZ Inspection of Upper Intestinal Tract, Via Natural or Artificial Opening Endoscopic (ICD-10-PCS; 2018-10-18)
DX: K22.6 Gastro-esophageal laceration-hemorrhage syndrome (principal); R57.1 Hypovolemic shock; R57.8 Other shock; D62 Acute posthemorrhagic anemia; I95.9 Hypotension, unspecified; F10.10 Alcohol abuse, uncomplicated; F11.10 Opioid abuse, uncomplicated; F32.9 Major depressive disorder, single episode, unspecified; K44.9 Diaphragmatic hernia without obstruction or gangrene; F17.210 Nicotine dependence, cigarettes, uncomplicated; K92.1 Melena
CPT/HCPCS: 36415; 71045; 71260; 74177; 80048; 80053; 80307; 80320; 82140; 83605; 83690; 83735; 84100; 84484; 85014; 85018; 85025; 85610; 85730; 86850; 86900; 86901; 86922; 87641; 93005; 99156; 99285; A9270-GY; G0480; J0696; J2250; J2354; J2405; J3010; J3411; J3475; J3480; P9040; Q9967

== ENCOUNTER 2018-11-20 12:12 | Emergency (ER) | payer OTHER ==
[2018-11-20] MEDS ORDERED: Ketorolac *IM* INJ* 60 MG/2 ML VIAL IM ONE (14:45)
--- NOTE | 2018-11-20 15:02 | ED ---
Upper Extremity Pain - HPI Summary HPI Summary: Patient is a 38-year-old male presenting to the ED with left arm palsy. He states he awoke at 930pm last night with numbness and tingling to the L arm. He states over the next 18 hours, he continued to have numbness and tingling into the arm with a wrist drop. States he has not pain, just numbness and tingling. States he has never had this before. He has full strength into his triceps there is weakness of the wrist extensor. Finger extensors. There is sensory loss over the dorsum of the hand as well as tingling to the forearm and tingling to the wrist and bicep. No pain with extension of the fingers. Hx of IV drug use with notable track menjivar to the bilateral antecubital fossa. - History of Current Complaint Chief Complaint: EDExtremityUpper Stated Complaint: SLEPT ON ARM STILL NUMB PER PT Time Seen by Provider: 11/20/18 14:10 Hx Obtained From: Patient Mechanism Of Injury: Unknown Onset/Duration: Still Present Timing: Constant Severity Initially: Moderate Severity Currently: Moderate Pain Location: Arm Aggravating Factor(s): Nothing, Other - wrist extension mainly affected Alleviating Factor(s): Nothing Associated Signs & Symptoms: Positive: Weakness, Numbness/Tingling Related History: Dominant Hand Right - Risk Factors Non-Orthopedic Risk Factor: Negative DVT Risk Factors: Negative Septic Arthritis Risk Factor: IV Drug Abuse Compartment Syndrome Risk Factors: Pain - Allergies/Home Medications Allergies/Adverse Reactions: Allergies Allergy/AdvReac Type Severity Reaction Status Date / Time No Known Allergies Allergy Verified 11/20/18 12:27 PMH/Surg Hx/FS Hx/Imm Hx Previously Healthy: Yes Endocrine/Hematology History: Denies: Hx Diabetes, Hx Thyroid Disease Cardiovascular History: Denies: Hx Hypertension, Hx Pacemaker/ICD Respiratory History: Denies: Hx Asthma, Hx Chronic Obstructive Pulmonary Disease (COPD) GI History: Denies: Hx Ulcer History: Denies: Hx Renal Disease Musculoskeletal History: Reports: Hx Tendonitis - Per Pt Sensory History: Denies: Hx Contacts or Glasses, Hx Hearing Aid Opthamlomology History: Denies: Hx Contacts or Glasses Psychiatric History: Reports: Hx Anxiety, Hx Attention Deficit Hyperactivity Disorder, Hx Substance Abuse Denies: Hx Panic Disorder - Surgical History Surgery Procedure, Year, and Place: TUBES IN EARS CHILD - Immunization History Date of Tetanus Vaccine: 2010 Date of Influenza Vaccine: Fall 2014 Infectious Disease History: No Infectious Disease History: Denies: Hx Clostridium Difficile, Hx Hepatitis, Hx Human Immunodeficiency Virus (HIV), Hx of Known/Suspected MRSA, Hx Shingles, Hx Tuberculosis, Hx Known/ Suspected VRE, Hx Known/Suspected VRSA, History Other Infectious Disease, Traveled Outside the [place] in Last 30 Days - Family History Known Family History: Negative: Other - malignant hyperthermia - Social History Occupation: Employed Part-time Lives: Alone Alcohol Use: Daily Alcohol Amount: 4-5 beers/day Hx Substance Use: Yes Substance Use Type: Reports: Heroin Substance Use Comment - Amount & Last Used: Known heroin per H&P, pt does not wish to discuss drug hx at this moment Hx Tobacco Use: Yes Smoking Status (MU): Current Some Day Smoker Type: Cigarettes, Smokeless Tobacco Amount Used/How Often: 4-5 CIG/DAY AND USES SMOKELESS TOBACCO Length of Time of Smoking/Using Tobacco: 20+ YEARS Have You Smoked in the Last Year: Yes Review of Systems Negative: Fever, Chills, Fatigue, Skin Diaphoresis Negative: Palpitations, Chest Pain Negative: Shortness Of Breath, Cough Genitourinary: Negative Positive: no symptoms reported, see HPI Positive: Decreased ROM, Other - wrist extension affected Negative: Rash, Bruising Neurological: Negative All Other Systems Reviewed And Are Negative: Yes Physical Exam Triage Information Reviewed: Yes Vital Signs On Initial Exam: Initial Vitals Temp Pulse Resp BP Pulse Ox 97.5 F 67 14 105/64 99 11/20/18 12:24 11/20/18 12:24 11/20/18 12:24 11/20/18 12:24 11/20/18 12:24 Vital Signs Reviewed: Yes Appearance: Positive: Well-Appearing, Well-Nourished Skin: Positive: Skin Color Reflects Adequate Perfusion Head/Face: Positive: Normal Head/Face Inspection Eyes: Positive: EOMI, Conjunctiva Clear Neck: Positive: No Lymphadenopathy Respiratory/Lung Sounds: Positive: Clear to Auscultation Cardiovascular: Positive: Pulses are Symmetrical in both Upper and Lower Extremities. Negative: Leg Edema Left, Leg Edema Right Musculoskeletal: Positive: Other - numbness and tingling throughout the L arm with associated weakness. worse to the L wrist - extension affected Neurological: Positive: Alert, Oriented to Person Place, Time Psychiatric: Positive: Normal, Affect/Mood Appropriate AVPU Assessment: Alert Procedures - Sedation Patient Received Moderate/Deep Sedation with Procedure: No Diagnostics - Vital Signs Vital Signs Temp Pulse Resp BP Pulse Ox 11/20/18 12:24 97.5 F 67 14 105/64 99 - Laboratory Lab Statement: Any lab studies that have been ordered have been reviewed, and results considered in the medical decision making process. Course/Dx - Course Course Of Treatment: Patient is a 38-year-old male presenting to the ED with left arm palsy. He states he awoke at 930pm last night with numbness and tingling to the L arm. He states over the next 18 hours, he continued to have numbness and tingling into the arm with a wrist drop. States he has no pain, just numbness and tingling. States he has never had this before. He has full strength into his triceps but there is weakness of the wrist extensor. Finger extensors also affected. There is sensory loss over the dorsum of the hand as well as tingling to the forearm and tingling to the wrist and bicep. No pain with extension of the fingers. Thumb abduction affected. Denies any tingling or extension of symptoms to the L side of the neck. Pulses + 2 bilaterally to the radial pulses. Pt given wrist cock up splint, and sling. He will f/u with PCP and neurology. Return precautions given. - Diagnoses Differential Diagnosis/HQI/PQRI: Positive: Other - numbness and tingling Provider Diagnoses: Radial nerve palsy Discharge ED - Sign-Out/Discharge Documenting (check all that apply): Patient Departure - Discharge Plan Condition: Stable Disposition: HOME Prescriptions: Ketorolac TAB * [Toradol TAB *] 10 mg PO Q6H #16 tab Patient Education Materials: Radial Nerve Palsy (ED) Referrals: Johnie Shaffer MD [Primary Care Provider] - Shant Zarate MD [Medical Doctor] - Additional Instructions: Keep the splint applied at all times Toradol up to four times daily for pain and inflammation Please follow up with Neurology I have given you a referral - Billing Disposition and Condition Condition: STABLE Disposition: Home
[2018-11-20 15:25] VITALS: BP 123/64
== END 2018-11-20 15:20 | disposition home or self-care (01) ==
LOC: ED 12:12
DX: G56.32 Lesion of radial nerve, left upper limb (principal); R20.0 Anesthesia of skin; Z72.0 Tobacco use; F41.9 Anxiety disorder, unspecified
CPT/HCPCS: 96372; 99282; J1885